=== PATIENT | male | born 1955 | race African-American/Black ===

== ENCOUNTER 2017-02-13 05:19 | Inpatient (IN) ==
[2017-02-13 05:53] LABS: Basophils % 0.4 % (0.0-0.8); Eosinophils % 0.5 % (0.00-10.9); Hematocrit 38.7 VOL% (42.0-52.0); Hemoglobin 12.5 GM/DL (14.0-18.0); Immature Granulocytes % 0.6 %; Immature Granulocytes Absolute 0.05 #; Lymphocytes # 1.5 10*3/uL (1.4-4.0); Lymphocytes % 18.7 % (21.2-54.2); Mean Corpuscular HGB Conc 32.3 GM/DL (32-36); Mean Corpuscular Hemoglobin 26 PG (27-34); Mean Corpuscular Volume 81.8 FL (87-102); Mean Platelet Volume 11.1 FL (9.6-12.0); Monocytes # 0.7 10*3/uL (0.11-0.8); Monocytes % 9.3 % (1.7-12.7); Neutrophils # 5.5 10*3/uL (1.4-7.4); Neutrophils % 70.5 % (38.7-73.9); Red Blood Count 4.73 MC/CUMM (3.8-5.5); Red Cell Distribution Width 20.4 % (9.3-17.3); White Blood Count 7.8 T/CUMM (4-12)
[2017-02-13 05:58] LABS: Platelet Count 80 T/CUMM (130-400)
[2017-02-13 06:13] LABS: Albumin 2.8 G/DL (3.4-5.0); Bilirubin,Total 1.8 MG/DL (0.2-1.0); Calcium 8.1 MG/DL (8.5-10.1); Osmolality,Calculated 281.5 MOS/KG (273-304); Potassium 4.2 MMOL/L (3.5-5.1)
[2017-02-13 06:29] LABS: Lactic Acid 1.3 MMOL/L (0.4-2.0)
[2017-02-13 06:31] LABS: Apearance,Urine CLEAR (Clear); Bacteria,Urine Occasional /HPF (Few); Bilirubin,Urine Negative (Negative); Blood, Urine Small mg/dL (Negative); Glucose,Urine (UA) Negative (Negative); Ketones,Urine Negative (Negative); Mucus,Urine Occasional /LPF (Occasional); Nitrite,Urine Negative (Negative); Protein,Urine 100 MG/DL; RBC,Urine 2 /HPF (0-4); Urine Color Yellow (Yellow); Urine Specific Gravity 1.016 (1.001-1.035); WBC,Urine <1 /HPF (0-6)
[2017-02-13] MEDS ORDERED: MORPHINE 2 MG/1 ML SYRINGE IV PRN (06:45)
[2017-02-13] MEDS ORDERED: MAGNESIUM SULF RIDER 2 GM in PREMIX 1 EACH IV PRN (06:45)
[2017-02-13] MEDS ORDERED: ZALEPLON 5 MG CAPSULE PO PRN (06:45)
[2017-02-13] MEDS ORDERED: ONDANSETRON 4 MG/2 ML VIAL IV PRN (06:45)
[2017-02-13] MEDS ORDERED: MAGNESIUM SULF RIDER 4 GM in PREMIX 1 EACH IV PRN (06:45)
[2017-02-13 06:47] LABS: Elliptocytes Few; Hypochromasia 1+; Platelet Estimate Decreased
[2017-02-13] MEDS ORDERED: POTASSIUM CHLORIDE 20 MEQ TABLET PO PRN (06:50)
--- NOTE | 2017-02-13 07:16 | Hospitalist History & Physical ---
<Kyrie Castañeda - Last Filed: 02/13/17 07:42> History of Present Illness History of present illness: Mr. Muñoz is a 61 year old male This is a chronically ill 61-year-old male that presented to the ED at [facility] this morning for evaluation of shortness of breath and "coughing up blood". Patient has a medical history significant for: Hypertension, dyslipidemia, multiple myeloma, chronic lower back pain, and osteosarcoma. The patient has a surgical history significant for stem cell transplantation at the [facility](2014). The patient reported the onset of symptoms 2 days prior to presentation. The patient reports that he has been at least "1/2 cup of blood at least 7 times since 2 AM this morning". He reports chills, fever, and lower back pain. He became alarmed and presented to the ED for further evaluation. In addition, the patient has a known diagnosis of osteosarcoma and is treated in the outpatient setting by Dr. Lauren and is currently undergoing chemotherapy. The patient is currently on aspirin therapy prophylactically. At the time of ED presentation, the patient was assessed. The patient was noted to be tachycardic with a heart rate of 126 with a low-grade temperature noted at 99.4. Labs were obtained; complete blood count reported white blood cell count 7.8, hemoglobin 12.5, hematocrit 30.7, and platelet count at 80. Complete metabolic profile reported sodium at 139, potassium 4.2, chloride 108, BUN 17, creatinine at 2.30, glucose 145, lactic acid 1.3, calcium 8.1, magnesium 1.9, total bilirubin 1.80, AST 49, ALT 48, and alkaline phosphatase is 76. BNP was noted at 879. Urinalysis was essentially unremarkable. Chest x -ray was obtained which was significant for congestive heart failure with mild decompensation. After brief discussion with both and Dr. Preciado, the patient will be admitted to the hospitalist services for continuation of care. Oncology has been contacted; Dr. Sparks is on-call. He has been notified of the patient's admission and has been requested to evaluate and assist during the clinical encounter. Medications have been reviewed; reconciliation will follow. CODE STATUS has been discussed; the patient is a Full CODE. Home Medications Medication Instructions Recorded Confirmed Type Aspirin Tab 325 mg PO DAILY 12/10/14 12/10/14 History Carvedilol [Coreg] 25 mg PO BID 12/10/14 12/10/14 History HYDROcodone/ACETAMIN 10-325 [[place] 1 tablet PO Q4-6H PRN 12/10/14 12/10/14 History 10-325] Lenalidomide [Revlimid] 25 mg PO DAILY 12/10/14 12/10/14 History Losartan/Hctz 50-12.5 [Hyzaar 1 tablet PO DAILY 12/10/14 12/10/14 History 50-12.5] Potassium Chloride Tab [K Dur] 10 meq PO BID 12/10/14 12/10/14 History predniSONE TAB 10 mg PO Q7DAY 12/10/14 12/10/14 History Acyclovir [Acyclovir Cap/Tab] 400 mg PO BID 12/11/14 12/11/14 History Alfuzosin [Uroxatral] 10 mg PO DAILY 12/11/14 12/11/14 History Bortezomib [Velcade] 3.5 mg IV DIRECTED 12/11/14 12/11/14 History Dexamethasone [Dexamethasone Tab] 4 mg PO DIRECTED 12/11/14 12/11/14 History Furosemide Tab [Lasix Tab] 40 mg PO DAILY 12/11/14 12/11/14 History Gabapentin Cap/Tab [Neurontin 300 mg PO TID 12/11/14 12/11/14 History Cap/Tab] Lenalidomide [Revlimid] 25 mg PO DAILY 12/11/14 12/11/14 History Magnesium Oxide 250 mg PO DAILY 12/11/14 12/11/14 History Zoledronic Acid [Zometa] 4 mg IV DIRECTED 12/11/14 12/11/14 History Allergies Allergy/AdvReac Type Severity Reaction Status Date / Time No Known Allergies Allergy Unverified 02/13/17 05:28 Exam - Constitutional Vitals: Period Temp Pulse Resp BP Sys/Connell Pulse Ox Last 24 Hr 99.4 F-99.4 F 121-126 22-30 113-135/75-86 96-99 Results - Labs CBC & BMP: 02/13/17 05:41 02/13/17 05:41 <Latanya Gavin - Last Filed: 02/13/17 08:03> Assessment and Plan - Time spent with patient Time spent with patient: Greater than 30 minutes (1) SOB (shortness of breath) Status: Acute Assessment and plan: Admit monitored bed to hospital services; start diuretics; potassium replacement ; follow up labs; repeat chest xray in a.m. Current Visit: Yes (2) Hemoptysis Status: Acute Current Visit: Yes (3) Multiple myeloma Status: Acute Assessment and plan: Patient of Dr Lauren; currently on p.o. chemotherapy treatment. Will consult Dr Sparks (molded goods controls operator for their services) for further evaluation. Current Visit: Yes History of Present Illness Chief complaint: shortness of breath; coughing up blood History of present illness: Mr. Muñoz is a very pleasant chronically ill 61 year old black male presented to [facility] ED this a.m. for evaluation of shortness of breath and "coughing up blood". Patient has a medical history significant for: hypertension; dyslipidemia; multiple myeloma, chronic lower back pain, and osteosarcoma. Patient has Sugical history: for stem cell transplantation at the [facility] (2014). Patient reported onset of symptoms 2 days prior to presentation. the patient reports that he has spit up at least "1/2 cup of blood at least 7 times since 2 AM this morning". He reports chills, fever, and lower back pain. He became alarmed and presented to the ED for further evaluation. In addition, the patient has a known diagnosis of osteosarcoma and is treated in the outpatient setting by Dr. Lauren and is currently undergoing P.O. chemotherapy. The patient is currently on aspirin therapy prophylactically. At the time of ED presentation, the patient was assessed. The patient was noted to be tachycardic with a heart rate of 126 with a low-grade temperature noted at 99.4. Labs were obtained; complete blood count reported white blood cell count 7.8, hemoglobin 12.5, hematocrit 30.7, and platelet count at 80. Complete metabolic profile reported sodium at 139, potassium 4.2, chloride 108, BUN 17, creatinine at 2.30, glucose 145, lactic acid 1.3, calcium 8.1, magnesium 1.9, total bilirubin 1.80, AST 49, ALT 48, and alkaline phosphatase is 76. BNP was noted at 879. Urinalysis was essentially unremarkable. Chest x -ray was obtained which was significant for congestive heart failure with mild decompensation. After brief discussion with both and Dr. Preciado, the patient will be admitted to the hospitalist services for continuation of care. Oncology has been contacted; Dr. Sparks is on-call. He has been notified of the patient's admission and has been requested to evaluate and assist during the clinical encounter. Medications have been reviewed; reconciliation will follow. CODE STATUS has been discussed; the patient is a Full CODE. Medical,Surgical,& Family Hx - Medical History Cardio: History of: Hypertension Neurology: No history of: Seizures Endocrine: History of: Dyslipidemia Gastrointestinal: No history of: GI Problems (screening) Musculoskeletal: History of: Musculoskeletal Problems (Bone CA) Other: History of: Cancer (bone cancer) - Surgical History Cardiac Surgeries: Patient Denies: Cardiac Catheterization Thoracic Surgeries: Patient denies;: Organ Transplant (on wait list) - Social History Smoking Status: Never smoker Frequency of Alcohol Use: None Type of Drug Use: None Review of systems: ROS completed and pertinent positives and negatives in HPI. Exam - Constitutional Vitals: Period Temp Pulse Resp BP Sys/Connell Pulse Ox Last 24 Hr 99.4 F-99.4 F 121-126 22-30 113-135/81-86 96-99 General appearance: no acute distress, over weight - Head Head exam: Present: normal inspection - Eye Eye exam: Present: EOMI Pupils: Present: KENNY - ENT ENT exam: Present: normal oropharynx - Neck Neck exam: Present: normal inspection - Respiratory Respiratory exam: Present: accessory muscle use, other (Bilateral rattles noted) - Cardiovascular Cardiovascular exam: Present: tachycardia - GI/Abdominal GI/Abdominal exam: Present: normal bowel sounds, soft. Absent: guarding, tenderness, rebound - Extremities Exam Extremities exam: Present: normal inspection, full ROM. Absent: edema - Neurological Exam Neurological exam: Present: alert, oriented X3, CN II-XII intact - Psychiatric Psychiatric exam: Present: normal affect, normal mood - Skin Skin exam: Present: normal color, warm, dry Results - Labs CBC & BMP: 02/13/17 05:41 02/13/17 05:41 Lab Results: I have reviewed the past 24 hour labs - Diagnostic Findings Procedure: Chest x-ray: report reviewed by me (CXR reviewed by Dr cerrato; CHF with mild decompensation )
--- NOTE | 2017-02-13 07:27 | EKG Report ---
Stationary ECG Study [facility] ER Test Date: 02/13/2017 5:37:30 AM Pat Name: CLAUDINE WILSON Department: Room: 434 Gender: M Channel Man: : 1955 Requested by: Silviano Baker Order Number: [id number] Reading MD: KAITLIN QUILES Intervals [place] Rate: 126 P: 55 VA: 135 QRS: -28 QRSD: 86 T: 40 QT: 335 QTc: 410 Interpretive Statements SINUS TACHYCARDIA BORDERLINE LEFT AXIS DEVIATION VOLTAGE CRITERIA FOR LVH NONSPECIFIC T-WAVE ABNORMALITY Electronically Signed On 02-14-17 12:50:20 CDT by KAITLIN QUILES [email or web address]
[2017-02-13] MEDS: FUROSEMIDE 40 MG/4 ML VIAL IV SCH ×3 (07:29→19:13)
[2017-02-13] MEDS ORDERED: FUROSEMIDE 40 MG/4 ML VIAL ONE (07:30)
--- NOTE | 2017-02-13 07:43 | Hospitalist History & Physical ---
History of Present Illness Chief complaint: Shortness of breath/coughing up blood History of present illness: Mr. Muñoz is a 61 year old male Home Medications Medication Instructions Recorded Confirmed Type Aspirin Tab 325 mg PO DAILY 12/10/14 12/10/14 History Carvedilol [Coreg] 25 mg PO BID 12/10/14 12/10/14 History HYDROcodone/ACETAMIN 10-325 [[place] 1 tablet PO Q4-6H PRN 12/10/14 12/10/14 History 10-325] Lenalidomide [Revlimid] 25 mg PO DAILY 12/10/14 12/10/14 History Losartan/Hctz 50-12.5 [Hyzaar 1 tablet PO DAILY 12/10/14 12/10/14 History 50-12.5] Potassium Chloride Tab [K Dur] 10 meq PO BID 12/10/14 12/10/14 History predniSONE TAB 10 mg PO Q7DAY 12/10/14 12/10/14 History Acyclovir [Acyclovir Cap/Tab] 400 mg PO BID 12/11/14 12/11/14 History Alfuzosin [Uroxatral] 10 mg PO DAILY 12/11/14 12/11/14 History Bortezomib [Velcade] 3.5 mg IV DIRECTED 12/11/14 12/11/14 History Dexamethasone [Dexamethasone Tab] 4 mg PO DIRECTED 12/11/14 12/11/14 History Furosemide Tab [Lasix Tab] 40 mg PO DAILY 12/11/14 12/11/14 History Gabapentin Cap/Tab [Neurontin 300 mg PO TID 12/11/14 12/11/14 History Cap/Tab] Lenalidomide [Revlimid] 25 mg PO DAILY 12/11/14 12/11/14 History Magnesium Oxide 250 mg PO DAILY 12/11/14 12/11/14 History Zoledronic Acid [Zometa] 4 mg IV DIRECTED 12/11/14 12/11/14 History Allergies Allergy/AdvReac Type Severity Reaction Status Date / Time No Known Allergies Allergy Unverified 02/13/17 05:28 Medical,Surgical,& Family Hx - Medical History Cardio: History of: Hypertension Neurology: No history of: Seizures Endocrine: History of: Dyslipidemia Gastrointestinal: No history of: GI Problems (screening) Musculoskeletal: History of: Musculoskeletal Problems (Bone CA) Other: History of: Cancer (bone cancer) - Surgical History Cardiac Surgeries: Patient Denies: Cardiac Catheterization Thoracic Surgeries: Patient denies;: Organ Transplant (on wait list) - Social History Smoking Status: Never smoker Frequency of Alcohol Use: None Type of Drug Use: None Exam - Constitutional Vitals: Period Temp Pulse Resp BP Sys/Connell Pulse Ox Last 24 Hr 99.4 F-99.4 F 121-126 22-30 113-135/81-86 96-99 Results - Labs CBC & BMP: 02/13/17 05:41 02/13/17 05:41
--- NOTE | 2017-02-13 08:47 | Oncology Consult Note ---
Assessment and Plan (1) Multiple myeloma Status: Acute Assessment and plan: There is nothing to add from a hematology standpoint. He appears to be in apparent remission from his myeloma to the best I can tell. His shortness of breath is being managed by the hospitalist service. Please call me if there are any questions that I may be of assistance with. He appears to have chronic kidney disease with a current creatinine of 2.3. I am unsure what his baseline usually is. Current Visit: Yes (2) SOB (shortness of breath) Status: Acute Current Visit: Yes History of Present Illness History of present illness: Mr. Muñoz is a 61 year old male with a history of multiple myeloma who is status post stem cell transplant at [facility] in 2014 and is currently on maintenance Revlimid. He is followed by Dr. Lauren here in [place] for his local oncology care. He presented to the emergency room this morning with a two-week history of orthopnea and shortness of breath. Evaluation in the emergency room was consistent with CHF exacerbation and he was admitted for further evaluation and treatment. Hematology has been consulted to help monitor his myeloma. Home Medications Medication Instructions Recorded Confirmed Type Aspirin Tab 325 mg PO DAILY 12/10/14 12/10/14 History Carvedilol [Coreg] 25 mg PO BID 12/10/14 12/10/14 History HYDROcodone/ACETAMIN 10-325 [[place] 1 tablet PO Q4-6H PRN 12/10/14 12/10/14 History 10-325] Lenalidomide [Revlimid] 25 mg PO DAILY 12/10/14 12/10/14 History Losartan/Hctz 50-12.5 [Hyzaar 1 tablet PO DAILY 12/10/14 12/10/14 History 50-12.5] Potassium Chloride Tab [K Dur] 10 meq PO BID 12/10/14 12/10/14 History predniSONE TAB 10 mg PO Q7DAY 12/10/14 12/10/14 History Acyclovir [Acyclovir Cap/Tab] 400 mg PO BID 12/11/14 12/11/14 History Alfuzosin [Uroxatral] 10 mg PO DAILY 12/11/14 12/11/14 History Bortezomib [Velcade] 3.5 mg IV DIRECTED 12/11/14 12/11/14 History Dexamethasone [Dexamethasone Tab] 4 mg PO DIRECTED 12/11/14 12/11/14 History Furosemide Tab [Lasix Tab] 40 mg PO DAILY 12/11/14 12/11/14 History Gabapentin Cap/Tab [Neurontin 300 mg PO TID 12/11/14 12/11/14 History Cap/Tab] Lenalidomide [Revlimid] 25 mg PO DAILY 12/11/14 12/11/14 History Magnesium Oxide 250 mg PO DAILY 12/11/14 12/11/14 History Zoledronic Acid [Zometa] 4 mg IV DIRECTED 12/11/14 12/11/14 History Allergies Allergy/AdvReac Type Severity Reaction Status Date / Time No Known Allergies Allergy Unverified 02/13/17 05:28 Medical,Surgical,& Family Hx - Medical History Cardio: History of: Hypertension Neurology: No history of: Seizures Endocrine: History of: Dyslipidemia Gastrointestinal: No history of: GI Problems (screening) Musculoskeletal: History of: Musculoskeletal Problems (Bone CA) Other: History of: Cancer (bone cancer) - Surgical History Cardiac Surgeries: Patient Denies: Cardiac Catheterization Thoracic Surgeries: Patient denies;: Organ Transplant (on wait list) - Family History Family History: Reports;: Family Diabetes (mother sister) - Social History Smoking Status: Never smoker Frequency of Alcohol Use: None Type of Drug Use: None 12 point system: reviewed and no additional remarkable complaints except as stated - Constitutional Constitutional: Present: fatigue - Cardiovascular Cardiovascular ROS IM: Present: edema, orthopnea. Absent: chest pain - Respiratory Respiratory: Present: cough, dyspnea Exam - Constitutional Vitals: Period Temp Pulse Resp BP Sys/Connell Pulse Ox Last 24 Hr 98.8 F-99.4 F 112-126 22-30 113-135/60-86 95-99 General appearance: normal weight, no acute distress - Head Head Exam: Present: normocephalic, atraumatic - Eye Eye Exam: Present: EOMI Pupils: Present: PERRL - ENT ENT exam: Present: normal exam, normal oropharynx - Neck Neck exam: Present: normal inspection - Respiratory Respiratory exam: Absent: accessory muscle use - Cardiovascular Cardiovascular exam: Absent: JVD - Neurological Exam Neurological exam: Present: alert, oriented X3 - Psychiatric Psychiatric exam: Present: normal affect, normal mood Results - Labs CBC & BMP: 02/13/17 05:41 02/13/17 05:41 Lab Results: I have reviewed the past 24 hour labs
[2017-02-13] MEDS: CARVEDILOL 25 MG TABLET PO SCH ×2 (10:14→20:49)
[2017-02-13] MEDS: MAGNESIUM OXIDE 400 MG TABLET PO SCH (10:14)
[2017-02-13] MEDS: ENOXAPARIN 30 MG/0.3 ML SYRINGE SUBCUT SCH (10:15)
[2017-02-13] MEDS: ASPIRIN EC 325 MG TABLET PO SCH (10:15)
[2017-02-13] MEDS: PANTOPRAZOLE 40 MG TABLET PO SCH (10:15)
--- NOTE | 2017-02-13 10:34 | XRay Report ---
History: Shortness of breath. History of multiple myeloma Date: 02/13/2017 Study: Chest x-ray AP portable Comparison exam: No previous similar available There is cardiomegaly and mild pulmonary vascular engorgement. There is some hazy edema in the lower lungs, right greater than left. There is mild bilateral pleural effusion. There is asymmetric prominence of the right hilar area. Consider underlying right hilar lymphadenopathy. There are some permeative lytic-type changes of the bony framework as noted on the bone survey from June 28, 2014 in this patient with known multiple myeloma. Impression: Cardiomegaly and evidence of CHF with some bibasilar pulmonary edema Potential right hilar lymphadenopathy Permeative lytic changes compatible with known multiple myeloma PROCEDURE INTERPRETED AT [facility] DEPARTMENT OF RADIOLOGY Final Report Signed by: Dr. Yasmeen Lezama
[2017-02-13] MEDS: POTASSIUM CHLORIDE 10 MEQ TABLET PO SCH ×2 (10:41→20:49)
[2017-02-13] MEDS ORDERED: NITROGLYCERIN 2% OINT 1 INCH/GM PACK TOP SCH (12:00)
--- NOTE | 2017-02-13 12:46 | Event Note ---
Called to see patient for low blood pressure. Mr. Muñoz states that he has been feeling dizzy got up to go to the bathroom became nauseated and sweaty and passed out while on the commode. He did not fall or injure himself. This occurred approximately 30-60 minutes ago. Nurse called and stated that his blood pressure was in the 70s. Upon my arrival he is awake alert and oriented with his at his side. He denies any chest pain. Shortness of breath may be slightly improved from earlier. Recheck of blood pressure reveals systolic blood pressure of 81. He did receive Coreg this morning as well as IV Lasix but has not received his Nitropaste since that time. We will proceed with transferring him to the CCU while holding any antihypertensive therapy. Cardiology will be consulted to assist with his care.
[2017-02-13 14:19] LABS: ABG Base Excess -8.4 MMOL/L (-2.5-2.5); ABG HCO3 17.8 MMOL/L (20-26); ABG Oxygen Saturation 97.1 % (95-100); ABG PH 7.458 (7.35-7.45); ABG PO2 90.7 MM HG (80-95); ABG TCO2 11.7 MMOL/L (23-27)
--- NOTE | 2017-02-13 14:27 | ECHO Report ---
Rm Muñoz Exam Date: 02/13/2017 12:21 Referring Physician: Technologist: Lakshmi Eid RDCS Age: 61 Ht (in): 77 Wt (lb): 280 Gender: M Exam Location: [facility] Echo Indications: Multiple myeloma, Shortness of breath, Essential (primary) hypertension BP: 78 / 50 HR: 99 Rhythm: Sinus Technical Quality: Good IMPRESSIONS EF 15%,severe global hypokinesis. Grade III/IV diastolic dysfunction (restrictive filling pattern), severely elevated filling pressures. Mildly increased right ventricular size. Moderately increased right atrial size. Moderately increased left atrial size. Morphologically normal mitral valve. Mild mitral valve regurgitation. Trace aortic valve regurgitation. Mild tricuspid valve regurgitation. PAP40 mmHG. Trace pulmonary valve regurgitation. No pericardial effusion. Normal aorta. MEASUREMENTS (Male / Female) Normal Values 2D ECHO LV Diastolic Diameter PLAX 6.7 cm 4.2 - 5.9 / 3.9 - 5.3 cm LV Systolic Diameter PLAX 6.6 cm LV Fractional Shortening PLAX 2.2 % IVS Diastolic Thickness 1.1 cm 0.6 - 1.0 / 0.6 - 0.9 cm LVPW Diastolic Thickness 1.1 cm 0.6 - 1.0 / 0.6 - 0.9 cm RV Internal Dim ED PLAX 5.0 cm Aortic Root Diameter 3.7 cm LA Systolic Diameter LX 4.9 cm 3.0 - 4.0 / 2.7 - 3.8 cm DOPPLER TR Peak Velocity 280.0 cm/s TR Peak Gradient 31.4 mmHg FINDINGS Left Ventricle EF 15%,severe global hypokinesis. Grade III/IV diastolic dysfunction (restrictive filling pattern), severely elevated filling pressures. Right Ventricle Mildly increased right ventricular size. Right Atrium Moderately increased right atrial size. Left Atrium Moderately increased left atrial size. Mitral Valve Morphologically normal mitral valve. Mild mitral valve regurgitation. Aortic Valve Aortic valve sclerosis. Trace aortic valve regurgitation. Tricuspid Valve Morphologically normal tricuspid valve. Mild tricuspid valve regurgitation. PAP40 mmHG. Pulmonic Valve Pulmonic valve not well visualized. Trace pulmonary valve regurgitation. Pericardium No pericardial effusion. Aorta Normal aorta. Christopher Tip (Electronically Signed) Final Date: 13 February 2017 14:26
[2017-02-13] MEDS: DOBUTamine 500 MG/250 ML PREMIX IV SCH (14:50)
--- NOTE | 2017-02-13 15:00 | Cardiology Consult Note ---
Assessment and Plan (1) Cardiomyopathy Status: Acute Current Visit: Yes Qualifiers: Cardiomyopathy type: unspecified Qualified Code(s): I42.9 - Cardiomyopathy , unspecified (2) Congestive heart failure Status: Acute Current Visit: Yes Qualifiers: Congestive heart failure type: systolic (3) Hypoxemia Status: Acute Current Visit: Yes (4) Cardiopulmonary arrest with successful resuscitation Status: Acute Current Visit: Yes (5) Renal insufficiency Status: Chronic Current Visit: Yes (6) Thrombocytopenia Status: Acute Current Visit: Yes (7) Hemoptysis Status: Acute Current Visit: Yes (8) Multiple myeloma Status: Chronic Current Visit: Yes Qualifiers: Multiple myeloma remission status: in remission Qualified Code(s): C90.01 - Multiple myeloma in remission (9) SOB (shortness of breath) Status: Acute Current Visit: Yes History of Present Illness - Data of Consult Patient: new to practice Consult date: 02/13/17 Requesting Physician: Henry Preciado - Consult Narrative Reason for consult: CHF 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 Lauren Mr. Muñoz is a 61 year old male without a prior cardiac history, with risk factors significant for hypertension. He has a history of multiple myeloma which is followed by Dr. Lauren. He was admitted to the hospital with progressive dyspnea, orthopnea, and some mild hemoptysis. His is present and provides supplemental history. Apparently the patient was having some lower extremity edema and shortness of breath a couple of months ago and was treated transiently with Lasix as an outpatient. Over the last 2 weeks he has had steady progressive dyspnea, orthopnea and lower extremity edema. He sometimes feels chest pressure when he tries to lay back and cannot breathe when his symptoms have been severe. He also had some ongoing epigastric pain that is constant, worsened with eating, but no other chest pain per se. On admission his chest x-ray demonstrated edema, he was also found to have renal insufficiency. Diuresis was initiated, and the patient became hypotensive with a blood pressure in the 70s. He has subsequently been transferred to the ICU. Echocardiogram was performed which demonstrated an ejection fraction of 15%. He has had some arthralgias, some occasional bone pain. He denies any fevers or chills. He does not have a productive cough. He is thrombocytopenic, does not believe that he is usually thrombocytopenic. He does have some chronic renal insufficiency. He has had some diarrhea during this admission without clear melena. Impression and plan: 1. Congestive heart failure. This appears to be at least a subacute presentation, there is no prior documentation of cardiomyopathy. This is secondary to systolic dysfunction and renal insufficiency. Currently his blood pressure will not allow any FRANCINE inhibitor or further afterload reduction. He has not tolerated aggressive diuresis. Dobutamine is being initiated and I am in agreement with this. If this is ineffective we can always consider milrinone as well. We will be monitoring for worsening hypotension with dobutamine. 2. Hemoptysis-significance of this is unclear. Massive hemoptysis is certainly contributes to the hypotension and hypoxemia. We will monitor CBCs. 3. Multiple myeloma -Reportedly stable 4. Chronic renal insufficiency 5. Thrombocytopenia-chronicity unknown. Addendum: Prior to completing this note, the patient experienced a "CODE BLUE". Per nursing report, prior to dobutamine initiation, the patient became progressively bradycardic and unresponsive and eventually developed asystole, hypoxemia. ACLS protocol was initiated. It was a difficult intubation and blood was noted in the airways. The patient received 2 rounds of epinephrine as well and we initiated norepinephrine drip. I have discussed these developments with the patient's family and elaborated on the grave prognosis these events can portend. I have discussed placement of a line and triple- lumen venous catheter for supportive measures and the family is in agreement with this approach. They would like to continue with full aggressive measures at this time. They believe this is congruent with the patient's wishes. We have resent blood work, chest x-ray and we will reevaluate his clinical scenario depending on the results of these tests. CC: Bal Cox - Home Medications and Allergies Home Medications: Home Medications Medication Instructions Recorded Confirmed Type Aspirin Tab 325 mg PO DAILY 12/10/14 02/13/17 History HYDROcodone/ACETAMIN 10-325 [[place] 1 tablet PO Q4-6H PRN 12/10/14 02/13/17 History 10-325] Furosemide Tab [Lasix Tab] 40 mg PO BID 12/11/14 02/13/17 History Lenalidomide [Revlimid] 5 mg PO QOTHER DAY 12/11/14 02/13/17 History Magnesium Oxide 250 mg PO DAILY 12/11/14 02/13/17 History Allopurinol 300 mg PO DAILY 02/13/17 02/13/17 History Calcium Carbonate [Calcium] 600 mg PO DAILY 02/13/17 02/13/17 History Cyclobenzaprine [Flexeril] 10 mg PO DAILY PRN 02/13/17 02/13/17 History Gabapentin 600 mg PO BID 02/13/17 02/13/17 History Lenalidomide [Revlimid] 5 mg PO QOTHER DAY 02/13/17 02/13/17 History Levothyroxine Tab [Synthroid Tab] 100 mcg PO DAILY 02/13/17 02/13/17 History Losartan Potassium 50 mg PO DAILY 02/13/17 02/13/17 History Magnesium 250 mg PO DAILY 02/13/17 02/13/17 History Tamsulosin [Flomax] 0.4 mg PO DAILY 02/13/17 02/13/17 History Allergies/Adverse Reactions: Allergies Allergy/AdvReac Type Severity Reaction Status Date / Time No Known Allergies Allergy Unverified 02/13/17 05:28 12 point system: reviewed and no additional remarkable complaints except as stated Medical,Surgical,& Family Hx - Medical History Cardio: History of: Hypertension Neurology: No history of: Seizures Endocrine: History of: Dyslipidemia Gastrointestinal: No history of: GI Problems (screening) Musculoskeletal: History of: Musculoskeletal Problems (Bone CA) Other: History of: Cancer (bone cancer) - Surgical History Cardiac Surgeries: Patient Denies: Cardiac Catheterization Thoracic Surgeries: Patient denies;: Organ Transplant (on wait list) - Family History Family History: Reports;: Family Diabetes (mother sister) - Social History Smoking Status: Never smoker Frequency of Alcohol Use: None Type of Drug Use: None Marital Status: Lives With:: Spouse Functional capacity: independent ambulation Physical Examination Vital Signs Temp Pulse Resp BP Pulse Ox 99.4 F 126 H 30 H 135/86 96 02/13/17 05:25 02/13/17 05:25 02/13/17 05:25 02/13/17 05:25 02/13/17 05:25 Exam: General appearance: normal weight, mild tachypnea, ill-appearing - Head Head exam: Present: normal inspection, normocephalic, atraumatic. Absent: hematoma, laceration - Eye Eye exam: Present: EOMI. Absent: conjunctival injection, nystagmus, periorbital swelling, scleral icterus, laceration to eyelids Pupils: Absent: constricted, dilated, fixed, irregular, unequal - ENT ENT exam: Present: normal exam, normal external ear exam - Neck Neck exam: Present: It is difficult to evaluate for JVD. Absent: lymphadenopathy, meningismus, tenderness, thyromegaly - Respiratory Respiratory exam: Present: Bilateral crackles. Absent: chest wall tenderness - Cardiovascular Cardiovascular exam: Present: regular rate and rhythm. Absent: carotid bruit, gallop, rubs - GI/Abdominal GI/Abdominal exam: Present: Mild midepigastric tenderness, mildly decreased bowel sounds, soft. Absent: firm, guarding, hernia, mass, tenderness, rebound. - Extremities Exam Extremities exam: Present: 1+ bilateral lower extremity edema, normal capillary refill. Absent: calf tenderness - Back Exam Back exam: Unable to examine at this time due to the patient's respiratory status. - Neurological Exam Neurological exam: Present: alert, oriented X3, grossly intact without resting or intention tremor - Psychiatric Psychiatric exam: Present: normal affect, mildly anxious - Skin Skin exam: Present: normal color, cool and diaphoretic, intact. Absent: cyanosis, rash, urticaria Result/EKG - Labs CBC & BMP: 02/13/17 05:41 02/13/17 05:41 Lab Results: I have reviewed the past 24 hour labs Labs: Laboratory Results - last 24 hr 02/13/17 02/13/17 02/13/17 05:41 05:41 05:41 WBC 7.8 RBC 4.73 Hgb 12.5 L Hct 38.7 L MCV 81.8 L MCH 26 L MCHC 32.3 RDW 20.4 H Plt Count 80 L MPV 11.1 Neut % (Auto) 70.5 Lymph % (Auto) 18.7 L [place] % (Auto) 9.3 Eos % (Auto) 0.5 Baso % (Auto) 0.4 Neut # (Auto) 5.5 Lymph # (Auto) 1.5 [place] # (Auto) 0.7 Eos # (Auto) 0.0 Baso # (Auto) 0.0 Immature Gran % 0.6 Nucleated RBC % 0.0 Immature Gran # 0.05 Nucleated RBCs # 0.00 Platelet Estimate Decreased Hypochromasia 1+ Elliptocytes Few Morphology Comment ABG pH ABG pCO2 ABG pO2 ABG HCO3 ABG Total CO2 ABG O2 Saturation ABG Base Excess Sodium 139 Potassium 4.2 Chloride 108 H Carbon Dioxide 22 Anion Gap 13.2 BUN 17 Creatinine 2.30 H GFR Calculation 51 BUN/Creatinine Ratio 7.00 Glucose 145 H Calculated Osmolality 281.5 Lactic Acid 1.3 Calcium 8.1 L Magnesium Total Bilirubin 1.80 H AST 49 H ALT 48 Alkaline Phosphatase 76 Troponin I B-Natriuretic Peptide Total Protein 7.0 Albumin 2.8 L Globulin 4.2 H Albumin/Globulin Ratio 0.6 L Urine Color Yellow Urine Appearance Clear Urine pH 6.0 Ur Specific [place] 1.016 Urine Protein 100 Urine Glucose (UA) Negative Urine Ketones Negative Urine Blood Small Urine Nitrate Negative Urine Bilirubin Negative Urine Urobilinogen 2.0 H Urine Leukocytes Negative Urine RBC 2 Urine WBC <1 Urine Bacteria Occasional Urine Mucus Occasional Ur Culture Indicated? Not indicated Blood Type Antibody Screen 02/13/17 02/13/17 02/13/17 05:41 05:41 05:41 WBC RBC Hgb Hct MCV MCH MCHC RDW Plt Count MPV Neut % (Auto) Lymph % (Auto) [place] % (Auto) Eos % (Auto) Baso % (Auto) Neut # (Auto) Lymph # (Auto) [place] # (Auto) Eos # (Auto) Baso # (Auto) Immature Gran % Nucleated RBC % Immature Gran # Nucleated RBCs # Platelet Estimate Hypochromasia Elliptocytes Morphology Comment ABG pH ABG pCO2 ABG pO2 ABG HCO3 ABG Total CO2 ABG O2 Saturation ABG Base Excess Sodium Potassium Chloride Carbon Dioxide Anion Gap BUN Creatinine GFR Calculation BUN/Creatinine Ratio Glucose Calculated Osmolality Lactic Acid Calcium Magnesium Total Bilirubin AST ALT Alkaline Phosphatase Troponin I 0.093 H B-Natriuretic Peptide 879 H Total Protein Albumin Globulin Albumin/Globulin Ratio Urine Color Urine Appearance Urine pH Ur Specific [place] Urine Protein Urine Glucose (UA) Urine Ketones Urine Blood Urine Nitrate Urine Bilirubin Urine Urobilinogen Urine Leukocytes Urine RBC Urine WBC Urine Bacteria Urine Mucus Ur Culture Indicated? Blood Type B NEGATIVE Antibody Screen Negative 02/13/17 02/13/17 02/13/17 09:45 13:01 14:15 WBC RBC Hgb Hct MCV MCH MCHC RDW Plt Count MPV Neut % (Auto) Lymph % (Auto) [place] % (Auto) Eos % (Auto) Baso % (Auto) Neut # (Auto) Lymph # (Auto) [place] # (Auto) Eos # (Auto) Baso # (Auto) Immature Gran % Nucleated RBC % Immature Gran # Nucleated RBCs # Platelet Estimate Hypochromasia Elliptocytes Morphology Comment ABG pH 7.458 H ABG pCO2 19.0 L* ABG pO2 90.7 ABG HCO3 17.8 L ABG Total CO2 11.7 L ABG O2 Saturation 97.1 ABG Base Excess -8.4 L Sodium Potassium Chloride Carbon Dioxide Anion Gap BUN Creatinine GFR Calculation BUN/Creatinine Ratio Glucose Calculated Osmolality Lactic Acid Calcium Magnesium Total Bilirubin AST ALT Alkaline Phosphatase Troponin I 0.096 H 0.122 H D B-Natriuretic Peptide Total Protein Albumin Globulin Albumin/Globulin Ratio Urine Color Urine Appearance Urine pH Ur Specific [place] Urine Protein Urine Glucose (UA) Urine Ketones Urine Blood Urine Nitrate Urine Bilirubin Urine Urobilinogen Urine Leukocytes Urine RBC Urine WBC Urine Bacteria Urine Mucus Ur Culture Indicated? Blood Type Antibody Screen 02/13/17 Unknown WBC RBC Hgb Hct MCV MCH MCHC RDW Plt Count MPV Neut % (Auto) Lymph % (Auto) [place] % (Auto) Eos % (Auto) Baso % (Auto) Neut # (Auto) Lymph # (Auto) [place] # (Auto) Eos # (Auto) Baso # (Auto) Immature Gran % Nucleated RBC % Immature Gran # Nucleated RBCs # Platelet Estimate Hypochromasia Elliptocytes Morphology Comment ABG pH ABG pCO2 ABG pO2 ABG HCO3 ABG Total CO2 ABG O2 Saturation ABG Base Excess Sodium Potassium Chloride Carbon Dioxide Anion Gap BUN Creatinine GFR Calculation BUN/Creatinine Ratio Glucose Calculated Osmolality Lactic Acid Calcium Magnesium 1.9 Total Bilirubin AST ALT Alkaline Phosphatase Troponin I B-Natriuretic Peptide Total Protein Albumin Globulin Albumin/Globulin Ratio Urine Color Urine Appearance Urine pH Ur Specific [place] Urine Protein Urine Glucose (UA) Urine Ketones Urine Blood Urine Nitrate Urine Bilirubin Urine Urobilinogen Urine Leukocytes Urine RBC Urine WBC Urine Bacteria Urine Mucus Ur Culture Indicated? Blood Type Antibody Screen - Diagnostic Findings Procedure: Chest x-ray: report reviewed by me - EKG EKG results: interpreted by me, sinus rhythm (With LVH), no acute changes
[2017-02-13] MEDS ORDERED: EPINEPHrine 1 MG/10 ML SYRINGE IV ONE ×3 (15:02→15:13)
[2017-02-13] MEDS ORDERED: SODIUM BICARBONATE 50 MEQ/50 ML SYRINGE IV ONE ×2 (15:10→15:14)
[2017-02-13] MEDS ORDERED: ATROPINE 1 MG/10 ML SYRINGE IV ONE ×2 (15:11→15:14)
--- NOTE | 2017-02-13 15:28 | Event Note ---
Patient was noted to have increasing dyspnea followed by progressive bradycardia and loss of consciousness at which time a code was called. ACLS protocol was initiated and he was intubated by Dr. Baker with 8-00 ETT utilizing the glide scope. After receiving several rounds of epinephrine, bicarb and atropine during which time he was in asystole, he did develop a rhythm consistent with sinus tachycardia and blood pressure was palpable. Bandar- Synephrine was initiated and he is now stabilized on the vent. Dr. Seo and I discussed the events with the family, including plans for central line and arterial line, continued vent support and medical therapy. At this time they understand that he is critically ill and are in agreement with current plans.
[2017-02-13] MEDS: PHENYLEPHRINE DRIP 40 MG/250 ML PREMIX IV SCH ×3 (15:30→21:26)
--- NOTE | 2017-02-13 15:47 | XRay Report ---
History: Endotracheal tube placement Date: 02/13/2017 at 3:16 PM Study: Chest x-ray AP portable Comparison exam: 02/13/2017 at 5:49 AM Endotracheal tube is well-positioned. There is continued cardiomegaly. The mediastinal contours are unchanged. The pulmonary vasculature is slightly prominent. There is continued patchy and hazy pulmonary edema in the mid to lower lung zones, though this appears improved. Osseous structures are unchanged. Impression: Satisfactory positioning of the endotracheal tube. Cardiomegaly and continued congestive heart failure, though there is improved pulmonary edema PROCEDURE INTERPRETED AT [facility] DEPARTMENT OF RADIOLOGY Final Report Signed by: Dr. Yasmeen Lezama
[2017-02-13 15:58] LABS: Calcium 7.7 MG/DL (8.5-10.1); Magnesium 2.2 MG/DL (1.8-2.4); Osmolality,Calculated 284.3 MOS/KG (273-304)
[2017-02-13] MEDS ORDERED: PROPOFOL 1,000 MG/100 ML BOTTLE IV SCH (16:00)
[2017-02-13 16:03] LABS: Troponin I Only 0.151 NG/ML (0.00-0.045)
--- NOTE | 2017-02-13 16:24 | Operative Note ---
Date of procedure: 02/13/17 Pre-op diagnosis: Hypotension, cardiac pulmonary arrest Post-op diagnosis: same Procedure: Procedure performed: 1. Placement of right femoral arterial line 2. Placement of right femoral venous quadralumen catheter Procedure: Informed consent was obtained from the patient's family as the patient was unresponsive. The right groin was prepped and draped in sterile fashion. The right femoral vein was accessed via modified Seldinger technique and the venous finder needle was used to access the femoral vein. A guidewire was advanced through the needle and the needle was removed. The kit dilator was used to dilate the vein over the wire, and the quadrant lumen catheter was subsequently placed without difficulty into the femoral vein. All 4 ports were aspirated and flushed easily. Thereafter, the right femoral artery was accessed via modified Seldinger technique using the enclosed arterial finder needle, and a guidewire was advanced into the artery. The femoral arterial catheter was advanced over the wire without difficulty, and red pulsatile return was observed prior to attaching the catheter to the arterial line. Impression: Successful placement of right femoral venous and arterial catheters as described above. Complications: None. Specimens removed: None Devices implanted: Catheters as described above Estimated blood loss: Less than 10 cc. Anesthesia: none Surgeon / Physician: Jessica Seo Estimated blood loss: minimal Specimens: none sent Condition: critical Disposition: ICU Results - Labs CBC & BMP: 02/13/17 05:41 02/13/17 15:16 Discharge Plan - Discharge Medications No Action Aspirin Tab 325 mg PO DAILY HYDROcodone/ACETAMIN 10-325 [[place] 10-325] 1 tablet PO Q4-6H PRN PRN Reason: Pain Furosemide Tab [Lasix Tab] 40 mg PO BID Lenalidomide [Revlimid] 5 mg PO QOTHER DAY Magnesium Oxide 250 mg PO DAILY Levothyroxine Tab [Synthroid Tab] 100 mcg PO DAILY Magnesium 250 mg PO DAILY Cyclobenzaprine [Flexeril] 10 mg PO DAILY PRN PRN Reason: Muscle Spasm Tamsulosin [Flomax] 0.4 mg PO DAILY Gabapentin 600 mg PO BID Lenalidomide [Revlimid] 5 mg PO QOTHER DAY Losartan Potassium 50 mg PO DAILY Allopurinol 300 mg PO DAILY Calcium Carbonate [Calcium] 600 mg PO DAILY - Follow Up or Referral - Forms/Instructions
[2017-02-13] MEDS ORDERED: PROPOFOL 1,000 MG/100 ML BOTTLE IV ONE (16:33)
[2017-02-13 16:40] LABS: ABG Base Excess -6.7 MMOL/L (-2.5-2.5); ABG HCO3 15.6 MMOL/L (20-26); ABG PCO2 24.2 MM HG (35-48); ABG PH 7.426 (7.35-7.45); ABG PO2 480.2 MM HG (80-95); ABG TCO2 16.3 MMOL/L (23-27)
--- NOTE | 2017-02-13 16:41 | XRay Report ---
History: Abdominal pain Date: 02/13/2017 Study: KUB Comparison exam: No previous similar There is some moderate gaseous distention of the stomach. There is no fahad bowel obstruction or gross mass lesion. A right femoral central line is positioned with its tip over the expected location of the right common iliac vein more superiorly. There is mild lumbar spondylosis. Impression: No definite acute process. PROCEDURE INTERPRETED AT [facility] DEPARTMENT OF RADIOLOGY Final Report Signed by: Dr. Yasmeen Lezama
[2017-02-13] MEDS ORDERED: NOREPINEPHRINE 8 MG in SODIUM CHLORIDE 0.9% 242 ML IV SCH (17:00)
[2017-02-13] MEDS: NOREPINEPHRINE 16 MG in SODIUM CHLORIDE 0.9% 234 ML IV SCH (17:10)
[2017-02-13 17:12] LABS: Basophils % 0.3 % (0.0-0.8); Hematocrit 41.7 VOL% (42.0-52.0); Hemoglobin 13.2 GM/DL (14.0-18.0); Immature Granulocytes % 1.5 %; Immature Granulocytes Absolute 0.19 #; Lymphocytes # 2.6 10*3/uL (1.4-4.0); Lymphocytes % 20.7 % (21.2-54.2); Mean Corpuscular HGB Conc 31.7 GM/DL (32-36); Mean Corpuscular Hemoglobin 26 PG (27-34); Mean Corpuscular Volume 83.4 FL (87-102); Monocytes % 8.5 % (1.7-12.7); NRBC # 0.05 10*3/uL; Neutrophils # 8.5 10*3/uL (1.4-7.4); Red Cell Distribution Width 20.8 % (9.3-17.3); White Blood Count 12.3 T/CUMM (4-12)
[2017-02-13 17:16] LABS: Platelet Count 70 T/CUMM (130-400)
[2017-02-13] MEDS ORDERED: HEPARIN/NACL 0.9% 2 UNITS/ML 500 ML IV ONE (18:25)
[2017-02-13] MEDS: DEXTROSE 50% 25 GM/50 ML VIAL IV PRN (18:30)
[2017-02-13] MEDS: LEVOFLOXACIN INJ 500 MG in PREMIX 1 EACH IV SCH (18:40)
[2017-02-13 19:12] LABS: ABG Base Excess -10.7 MMOL/L (-2.5-2.5); ABG HCO3 12.6 MMOL/L (20-26); ABG PCO2 22.9 MM HG (35-48); ABG PH 7.357 (7.35-7.45); ABG PO2 330.7 MM HG (80-95); ABG TCO2 13.3 MMOL/L (23-27)
[2017-02-13 19:13] LABS: ABG Oxygen Saturation 99.7 % (95-100)
[2017-02-13 20:18] LABS: ABG Base Excess -7.8 MMOL/L (-2.5-2.5); ABG HCO3 18.2 MMOL/L (20-26); ABG PCO2 25.2 MM HG (35-48); ABG PH 7.397 (7.35-7.45); ABG TCO2 13.6 MMOL/L (23-27)
[2017-02-13] MEDS: metroNIDAZOLE INJ 500 MG in PREMIX 1 EACH IV SCH (20:49)
[2017-02-13] MEDS ORDERED: PHENYLEPHRINE DRIP 40 MG/250 ML PREMIX IV ONE (21:48)
[2017-02-13] MEDS: GABAPENTIN 600 MG TABLET PO SCH (22:39)
[2017-02-14] MEDS ORDERED: PHENYLEPHRINE DRIP 40 MG/250 ML PREMIX IV ONE (01:11)
[2017-02-14] MEDS: PHENYLEPHRINE DRIP 40 MG/250 ML PREMIX IV SCH ×4 (01:37→09:10)
[2017-02-14] MEDS: DOPamine 800 MG/250 ML PREMIX IV SCH (01:55)
[2017-02-14 04:01] LABS: ABG Base Excess -10.1 MMOL/L (-2.5-2.5); ABG HCO3 16.6 MMOL/L (20-26); ABG PCO2 22.3 MM HG (35-48); ABG PH 7.384 (7.35-7.45); ABG TCO2 11.6 MMOL/L (23-27)
[2017-02-14 04:03] LABS: Basophils % 0.2 % (0.0-0.8); Hematocrit 41.3 VOL% (42.0-52.0); Hemoglobin 13.1 GM/DL (14.0-18.0); Immature Granulocytes % 0.9 %; Lymphocytes # 1.2 10*3/uL (1.4-4.0); Lymphocytes % 10.9 % (21.2-54.2); Mean Corpuscular HGB Conc 31.7 GM/DL (32-36); Mean Corpuscular Hemoglobin 27 PG (27-34); Mean Corpuscular Volume 83.4 FL (87-102); Monocytes # 0.6 10*3/uL (0.11-0.8); Monocytes % 6.1 % (1.7-12.7); NRBC # 0.09 10*3/uL; Neutrophils # 8.6 10*3/uL (1.4-7.4); Neutrophils % 81.9 % (38.7-73.9); Red Blood Count 4.95 MC/CUMM (3.8-5.5); Red Cell Distribution Width 21.1 % (9.3-17.3); White Blood Count 10.5 T/CUMM (4-12)
[2017-02-14 04:07] LABS: Platelet Count 35 T/CUMM (130-400)
[2017-02-14] MEDS: NOREPINEPHRINE 16 MG in SODIUM CHLORIDE 0.9% 234 ML IV SCH ×3 (04:09→16:08)
[2017-02-14] MEDS: DOBUTamine 500 MG/250 ML PREMIX IV SCH ×2 (04:26→12:37)
--- NOTE | 2017-02-14 04:27 | EKG Report ---
Stationary ECG Study [facility] Test Date: 02/13/2017 9:45 PM Pat Name: CLAUDINE WILSON Department: Room: 124 Gender: M [employer] Worker: HAMLET : [id number] Requested by: Jessica Seo Order Number: [id number] Reading MD: KAITLIN QUILES Intervals [place] Rate: 54 P: 95 UT: 231 QRS: -74 QRSD: 166 T: 86 QT: 561 QTc: 548 Interpretive Statements SINUS BRADYCARDIA WITH MARKED SINUS ARRHYTHMIA WITH PROLONGED UT INTERVAL MARKED LEFT AXIS DEVIATION LEFT BUNDLE BRANCH BLOCK Electronically Signed On 02-14-17 13:03:47 CDT by KAITLIN QUILES [email or web address]
[2017-02-14] MEDS: metroNIDAZOLE INJ 500 MG in PREMIX 1 EACH IV SCH ×3 (04:52→20:39)
[2017-02-14] MEDS ORDERED: SODIUM CHLORIDE 0.9% 250 ML IV PRN ×2 (05:11→10:04)
[2017-02-14 05:16] LABS: Calcium 7.4 MG/DL (8.5-10.1); Osmolality,Calculated 282.5 MOS/KG (273-304)
[2017-02-14 05:26] LABS: Potassium 7.4 MMOL/L (3.5-5.1)
[2017-02-14] MEDS: DEXTROSE 50% 25 GM/50 ML VIAL IV PRN ×5 (05:30→16:50)
[2017-02-14 05:41] LABS: CKMB % 0.4 %
[2017-02-14 05:45] LABS: Troponin I Only 3.74 NG/ML (0.00-0.045)
[2017-02-14] MEDS: SODIUM ACETATE 150 MEQ in DEXTROSE 5% 925 ML IV SCH ×2 (06:32→17:03)
[2017-02-14 06:45] LABS: Band Neutrophils 7 % (0-10); Burr Cells Slight; Hypochromasia Slight; Lymphocytes 13 % (20-55); Nucleated Red Blood Cells 2 (0-5); Ovalocytes Slight; Platelet Estimate Decreased; Segmented Neutrophils 74 % (50-85); Total Cells Counted 100
--- NOTE | 2017-02-14 08:13 | XRay Report ---
History: Shortness of breath Date: 02/14/2017 Study: Chest x-ray AP portable Comparison exam: 02/13/2017 The endotracheal and nasogastric tubes remain in place. There is stable cardiomegaly. The mediastinal contours are unchanged. The pulmonary vasculature is not grossly engorged. The study was performed in shallow inspiration. There is still some asymmetric patchy and hazy right infrahilar infiltrate/edema, grossly similar. The left lung is generally clear for shallow breath. There is no gross pleural effusion. Osseous structures are unchanged. Impression: Continued asymmetric patchy and hazy right infrahilar edema/infiltrate, grossly similar. Left lung is generally clear. Otherwise unchanged PROCEDURE INTERPRETED AT [facility] DEPARTMENT OF RADIOLOGY Final Report Signed by: Dr. Yasmeen Lezama
--- NOTE | 2017-02-14 08:15 | XRay Report ---
History: Audible wheezing Date: 02/14/2017 at 7:38 AM Study: Chest x-ray AP portable Comparison exam: 02/14/2017 at 2:51 AM The endotracheal and nasogastric tubes remain in stable satisfactory position. There is stable cardiomegaly. The mediastinal contours are unchanged. The pulmonary vasculature is not engorged. There is again noted to be some patchy and hazy edema/infiltrate over the right infrahilar area, grossly similar. The left lung is generally clear. There is no pleural effusion. There is no pneumothorax. Osseous structures are unchanged. Impression: Continued asymmetric patchy and hazy infrahilar pulmonary edema/infiltrate on the right. Underlying pneumonia cannot be excluded. Otherwise unchanged PROCEDURE INTERPRETED AT [facility] DEPARTMENT OF RADIOLOGY Final Report Signed by: Dr. Yasmeen Lezama
[2017-02-14] MEDS ORDERED: TAMSULOSIN 0.4 MG CAPSULE PO SCH (09:00)
[2017-02-14] MEDS ORDERED: ALLOPURINOL 300 MG TABLET PO SCH (09:00)
[2017-02-14] MEDS ORDERED: CALCIUM (CARBONATE) 600 MG TABLET PO SCH (09:00)
--- NOTE | 2017-02-14 09:01 | Cardiology Progress Note ---
Assessment and Plan (1) Cardiomyopathy Status: Acute Current Visit: Yes Qualifiers: Cardiomyopathy type: unspecified Qualified Code(s): I42.9 - Cardiomyopathy , unspecified (2) Congestive heart failure Status: Acute Current Visit: Yes Qualifiers: Congestive heart failure type: systolic (3) Hypoxemia Status: Acute Current Visit: Yes (4) Cardiopulmonary arrest with successful resuscitation Status: Acute Current Visit: Yes (5) Renal insufficiency Status: Acute Current Visit: Yes (6) Thrombocytopenia Status: Acute Current Visit: Yes (7) Hemoptysis Status: Acute Current Visit: Yes (8) Multiple myeloma Status: Chronic Current Visit: Yes Qualifiers: Multiple myeloma remission status: in remission Qualified Code(s): C90.01 - Multiple myeloma in remission (9) SOB (shortness of breath) Status: Acute Current Visit: Yes (10) Metabolic acidemia Status: Acute Current Visit: Yes (11) Hyperkalemia Status: Acute Current Visit: Yes Cardiology - PN: Subj Interval history: Recycling Manager: None Oncologist: Dr. Lauren Mr. Muñoz is a 61 year old male without a prior cardiac history, with risk factors significant for hypertension. He has a history of multiple myeloma which is followed by Dr. Lauren. He was admitted to the hospital with progressive dyspnea, orthopnea, and some mild hemoptysis. He had an approximate 2-3 week prodrome of heart failure symptoms. Echocardiogram was performed which demonstrated an ejection fraction of 15%. He is also had some thrombocytopenia and chronic renal insufficiency. Yesterday he was very tachypneic, mildly hypoxic, and developed some cardiopulmonary arrest from which she was resuscitated. He has been intubated and supported with pressors. February 14, 2017: The patient has had some increase in his pressor support. In general, I believe the dobutamine was worsening his hypotension so this was discontinued. He continues to be anuric, has had worsening metabolic acidemia and today also has hyperkalemia and hypoglycemia (despite not receiving hypoglycemic agents). He has a worsening thrombocytopenia. There is dark- colored return from his NG tube. Impression and plan: 1. Congestive heart failure. This appears to be at least a subacute presentation, there is no prior documentation of cardiomyopathy. This is secondary to systolic dysfunction and renal insufficiency. Curiously his BNP is relatively low despite his severe renal failure. Currently his blood pressure will not allow any FRANCINE inhibitor or further afterload reduction. He has not tolerated aggressive diuresis. Yesterday the dobutamine seemed to worsen his hypotension so we discontinued it, although I will try to rechallenge him today and see how his hemodynamics respond. 2. Hemoptysis-significance of this is unclear. 3. Multiple myeloma -Reportedly stable 4. Acute renal failure on chronic renal insufficiency-this is likely the result of his hypotension and cardiopulmonary arrest yesterday, with worsening aggravation from his low cardiac output. He is hyperkalemic today and has received some medical therapy for this. His hemodynamics would not allow dialysis. 5. Thrombocytopenia-chronicity unknown. This is worsening. This has precluded any invasive cardiac workup. 6. Respiratory failure-pulmonary edema is likely contributing to this. He is also being treated for any infectious process. Is relatively low BNP given his other clinical picture suggests that this may be multifactorial respiratory failure. 7. Hypoglycemia-likely related to his multiorgan failure. 8. Metabolic acidosis-multifactorial including low cardiac output, acute renal failure, cardiopulmonary arrest. In general his overall condition remains critical with a very poor prognosis for recovery. I have conveyed this to the family and they are aware of his grim condition. Exam (Progress Note) - Constitutional Vitals: Period Temp Pulse Resp BP Sys/Connell Pulse Ox Last 24 Hr 97.0 F-98.7 F 54-99 17-50 78-129/32-92 85-100 Exam: General appearance: normal weight, no acute distress, intubated, not spontaneously arousable during the exam, minimally responsive to stimulation. - Head Head exam: Present: normocephalic, atraumatic,. Absent: hematoma, laceration - Eye Eye exam: Absent: conjunctival injection, nystagmus, periorbital swelling, scleral icterus, laceration to eyelids Pupils: Present: PERRL, dilation. Absent: constricted, fixed, irregular, unequal - ENT ENT exam: Present: normal exam, normal external ear exam - Neck Neck exam: Present: It is difficult to assess for JVD. Absent: lymphadenopathy , meningismus, tenderness, thyromegaly - Respiratory Respiratory exam: Present: clear to auscultation bilaterally anteriorly, there is normal rise with ventilated breaths. Absent: accessory muscle use, chest wall tenderness - Cardiovascular Cardiovascular exam: Present: regular rate and rhythm. Absent: carotid bruit, gallop, JVD, rubs - GI/Abdominal GI/Abdominal exam: Present: Hypoactive bowel sounds, protuberant. Absent: firm , guarding, hernia, mass, tenderness, rebound, soft - Extremities Exam Extremities exam: Present: 1+ bilateral lower extremity edema. The right groin is without evidence of hematoma surrounding the right arterial line and central venous line which appeared to be well placed. - Back Exam Back exam: Unable to assess due to patient being on the ventilator - Neurological Exam Neurological exam: Unable to fully assess due to patient being on the ventilator. She does appear to move all 4 extremities. - Psychiatric Psychiatric exam: Unable to assess due to patient being on the ventilator. - Skin Skin exam: Present: normal color, warm, dry, intact. Absent: cyanosis, diaphoretic, rash, urticaria Result/EKG - Labs CBC & BMP: 02/14/17 03:55 02/14/17 03:55 Lab Results: I have reviewed the past 24 hour labs Labs: Laboratory Results - last 24 hr 02/13/17 02/13/17 02/13/17 09:45 13:01 14:15 WBC RBC Hgb Hct MCV MCH MCHC RDW Plt Count Neut % (Auto) Lymph % (Auto) [place] % (Auto) Eos % (Auto) Baso % (Auto) Neut # (Auto) Lymph # (Auto) [place] # (Auto) Eos # (Auto) Baso # (Auto) Total Counted Immature Gran % Nucleated RBC % Immature Gran # Segmented Neutrophils Band Neutrophils Lymphocytes Monocytes Nucleated RBCs Nucleated RBCs # Platelet Estimate Hypochromasia Ovalocytes Latasha Cells Morphology Comment ABG pH 7.458 H ABG pCO2 19.0 L* ABG pO2 90.7 ABG HCO3 17.8 L ABG Total CO2 11.7 L ABG O2 Saturation 97.1 ABG Base Excess -8.4 L Sodium Potassium Chloride Carbon Dioxide Anion Gap BUN Creatinine GFR Calculation BUN/Creatinine Ratio Glucose POC Glucose Calculated Osmolality Calcium Magnesium Total Creatine Kinase CK-MB (CK-2) CK and CKMB Interp Troponin I 0.096 H 0.122 H D B-Natriuretic Peptide Amylase Lipase 02/13/17 02/13/17 02/13/17 15:16 15:16 16:29 WBC RBC Hgb Hct MCV MCH MCHC RDW Plt Count Neut % (Auto) Lymph % (Auto) [place] % (Auto) Eos % (Auto) Baso % (Auto) Neut # (Auto) Lymph # (Auto) [place] # (Auto) Eos # (Auto) Baso # (Auto) Total Counted Immature Gran % Nucleated RBC % Immature Gran # Segmented Neutrophils Band Neutrophils Lymphocytes Monocytes Nucleated RBCs Nucleated RBCs # Platelet Estimate Hypochromasia Ovalocytes [place] Cells Morphology Comment ABG pH 7.426 ABG pCO2 24.2 L ABG pO2 480.2 H ABG HCO3 15.6 L ABG Total CO2 16.3 L ABG O2 Saturation 100.0 ABG Base Excess -6.7 L Sodium 141 Potassium 5.0 Chloride 104 Carbon Dioxide 20 L Anion Gap 22.0 H BUN 23 H Creatinine 3.60 H GFR Calculation 30 BUN/Creatinine Ratio 6.00 Glucose 94 POC Glucose Calculated Osmolality 284.3 Calcium 7.7 L Magnesium 2.2 Total Creatine Kinase 474 H CK-MB (CK-2) 1.8 CK and CKMB Interp Troponin I 0.151 H D B-Natriuretic Peptide Amylase 64 Lipase 250.0 02/13/17 02/13/17 02/13/17 16:56 16:57 19:05 WBC 12.3 H D RBC 5.00 Hgb 13.2 L Hct 41.7 L MCV 83.4 L MCH 26 L MCHC 31.7 L RDW 20.8 H Plt Count 70 L Neut % (Auto) 69.0 Lymph % (Auto) 20.7 L [place] % (Auto) 8.5 Eos % (Auto) 0.0 Baso % (Auto) 0.3 Neut # (Auto) 8.5 H Lymph # (Auto) 2.6 [place] # (Auto) 1.0 H Eos # (Auto) 0.0 Baso # (Auto) 0.0 Total Counted Immature Gran % 1.5 Nucleated RBC % 0.4 Immature Gran # 0.19 Segmented Neutrophils Band Neutrophils Lymphocytes Monocytes Nucleated RBCs Nucleated RBCs # 0.05 Platelet Estimate Hypochromasia Ovalocytes [place] Cells Morphology Comment ABG pH ABG pCO2 ABG pO2 ABG HCO3 ABG Total CO2 ABG O2 Saturation ABG Base Excess Sodium Potassium Chloride Carbon Dioxide Anion Gap BUN Creatinine GFR Calculation BUN/Creatinine Ratio Glucose POC Glucose 52 L 90 Calculated Osmolality Calcium Magnesium Total Creatine Kinase CK-MB (CK-2) CK and CKMB Interp Troponin I B-Natriuretic Peptide Amylase Lipase 02/13/17 02/13/17 02/13/17 19:06 20:09 21:40 WBC RBC Hgb Hct MCV MCH MCHC RDW Plt Count Neut % (Auto) Lymph % (Auto) [place] % (Auto) Eos % (Auto) Baso % (Auto) Neut # (Auto) Lymph # (Auto) [place] # (Auto) Eos # (Auto) Baso # (Auto) Total Counted Immature Gran % Nucleated RBC % Immature Gran # Segmented Neutrophils Band Neutrophils Lymphocytes Monocytes Nucleated RBCs Nucleated RBCs # Platelet Estimate Hypochromasia Ovalocytes [place] Cells Morphology Comment ABG pH 7.357 7.397 ABG pCO2 22.9 L 25.2 L ABG pO2 330.7 H 410.0 H ABG HCO3 12.6 L 18.2 L ABG Total CO2 13.3 L 13.6 L ABG O2 Saturation 99.7 100.0 ABG Base Excess -10.7 L -7.8 L Sodium Potassium Chloride Carbon Dioxide Anion Gap BUN Creatinine GFR Calculation BUN/Creatinine Ratio Glucose POC Glucose Calculated Osmolality Calcium Magnesium Total Creatine Kinase 708 H D CK-MB (CK-2) 4.5 H CK and CKMB Interp Troponin I 1.240 H D B-Natriuretic Peptide Amylase Lipase 02/14/17 02/14/17 02/14/17 03:55 03:55 03:55 WBC 10.5 RBC 4.95 Hgb 13.1 L Hct 41.3 L MCV 83.4 L MCH 27 MCHC 31.7 L RDW 21.1 H Plt Count 35 L* D Neut % (Auto) 81.9 H Lymph % (Auto) 10.9 L [place] % (Auto) 6.1 Eos % (Auto) 0.0 Baso % (Auto) 0.2 Neut # (Auto) 8.6 H Lymph # (Auto) 1.2 L [place] # (Auto) 0.6 Eos # (Auto) 0.0 Baso # (Auto) 0.0 Total Counted 100 Immature Gran % 0.9 Nucleated RBC % 0.9 Immature Gran # 0.10 Segmented Neutrophils 74 Band Neutrophils 7 Lymphocytes 13 L Monocytes 6 Nucleated RBCs 2 Nucleated RBCs # 0.09 Platelet Estimate Decreased Hypochromasia Slight Ovalocytes Slight [place]asha Cells Slight Morphology Comment ABG pH ABG pCO2 ABG pO2 ABG HCO3 ABG Total CO2 ABG O2 Saturation ABG Base Excess Sodium 139 Potassium 7.4 H* D Chloride 104 Carbon Dioxide 13 L Anion Gap 29.4 H BUN 42 H D Creatinine 5.90 H GFR Calculation 17 BUN/Creatinine Ratio 7.00 Glucose 15 L* POC Glucose Calculated Osmolality 282.5 Calcium 7.4 L Magnesium Total Creatine Kinase CK-MB (CK-2) CK and CKMB Interp Troponin I B-Natriuretic Peptide 398 H Amylase Lipase 02/14/17 02/14/17 02/14/17 03:55 04:00 05:23 WBC RBC Hgb Hct MCV MCH MCHC RDW Plt Count Neut % (Auto) Lymph % (Auto) [place] % (Auto) Eos % (Auto) Baso % (Auto) Neut # (Auto) Lymph # (Auto) [place] # (Auto) Eos # (Auto) Baso # (Auto) Total Counted Immature Gran % Nucleated RBC % Immature Gran # Segmented Neutrophils Band Neutrophils Lymphocytes Monocytes Nucleated RBCs Nucleated RBCs # Platelet Estimate Hypochromasia Ovalocytes [place] Cells Morphology Comment ABG pH 7.384 ABG pCO2 22.3 L ABG pO2 156.0 H ABG HCO3 16.6 L ABG Total CO2 11.6 L ABG O2 Saturation 99.0 ABG Base Excess -10.1 L Sodium Potassium Chloride Carbon Dioxide Anion Gap BUN Creatinine GFR Calculation BUN/Creatinine Ratio Glucose POC Glucose < 20 L* Calculated Osmolality Calcium Magnesium Total Creatine Kinase 1985 H D CK-MB (CK-2) 7.5 H CK and CKMB Interp 0.4 Troponin I 3.740 H D B-Natriuretic Peptide Amylase Lipase 02/14/17 02/14/17 02/14/17 05:47 06:14 06:43 WBC RBC Hgb Hct MCV MCH MCHC RDW Plt Count Neut % (Auto) Lymph % (Auto) [place] % (Auto) Eos % (Auto) Baso % (Auto) Neut # (Auto) Lymph # (Auto) [place] # (Auto) Eos # (Auto) Baso # (Auto) Total Counted Immature Gran % Nucleated RBC % Immature Gran # Segmented Neutrophils Band Neutrophils Lymphocytes Monocytes Nucleated RBCs Nucleated RBCs # Platelet Estimate Hypochromasia Ovalocytes [place] Cells Morphology Comment ABG pH ABG pCO2 ABG pO2 ABG HCO3 ABG Total CO2 ABG O2 Saturation ABG Base Excess Sodium Potassium Chloride Carbon Dioxide Anion Gap BUN Creatinine GFR Calculation BUN/Creatinine Ratio Glucose POC Glucose 30 L* 48 L* 87 Calculated Osmolality Calcium Magnesium Total Creatine Kinase CK-MB (CK-2) CK and CKMB Interp Troponin I B-Natriuretic Peptide Amylase Lipase - Diagnostic Findings Procedure: Chest x-ray: report reviewed by me - EKG EKG results: interpreted by me, sinus rhythm
[2017-02-14] MEDS ORDERED: SODIUM POLYSTYRENE SULFATE 15 GM/60 ML BOTTLE PO ONE (09:13)
[2017-02-14] MEDS: ASPIRIN EC 325 MG TABLET PO SCH (09:17)
[2017-02-14] MEDS: ENOXAPARIN 30 MG/0.3 ML SYRINGE SUBCUT SCH (09:17)
--- NOTE | 2017-02-14 10:06 | Oncology Progress Note ---
Assessment and Plan (1) SOB (shortness of breath) Status: Acute Current Visit: Yes (2) Myeloma Status: Acute Current Visit: Yes Oncology Subjective PN Interval history: Mr. Muñoz is now status post CODE BLUE. The etiology of this is unknown at this time but his prognosis does appear quite grim. His platelet count has dropped after the events of yesterday which is not surprising given his history of a transplant. Blood counts are very sensitive to any acute event particularly hypotension. Since he is having bloody drainage to his NG tube I think it would benefit him to have 1 unit of platelets. I will write for these. Otherwise there is very little to offer from hematology standpoint. Again from reading his records, he appeared to be in remission from his myeloma and was currently just taking low-dose maintenance Revlimid on an outpatient setting. After transplant some people remain in remission for 1-2 decades. Family is aware of his very poor prognosis at this time given his current situation. Exam - Constitutional Vitals: Period Temp Pulse Resp BP Sys/Connell Pulse Ox Last 24 Hr 97.0 F-98.7 F 54-99 17-50 78-129/32-92 85-100 - Respiratory Respiratory exam: Present: CTAB. Absent: wheezes - Cardiovascular Cardiovascular exam: Present: tachycardia. Absent: JVD - GI/Abdominal GI/Abdominal exam: Present: distended, soft. Absent: ascites, mass - Skin Skin exam: Present: warm, dry Results - Labs CBC & BMP: 02/14/17 03:55 02/14/17 03:55 Lab Results: I have reviewed the past 24 hour labs
[2017-02-14] MEDS: LEVOTHYROXINE 100 MCG TABLET PO SCH (10:24)
[2017-02-14] MEDS: MAGNESIUM OXIDE 400 MG TABLET PO SCH (10:24)
[2017-02-14] MEDS: GABAPENTIN 600 MG TABLET PO SCH (10:25)
[2017-02-14] MEDS ORDERED: PANTOPRAZOLE 40 MG VIAL IV SCH (10:30)
[2017-02-14] MEDS: PANTOPRAZOLE 40 MG TABLET PO SCH (10:41)
--- NOTE | 2017-02-14 11:00 | Nephrology Consult Note ---
History of Present Illness Chief complaint: ARF History of present illness: Mr. Muñoz is a 61 year old male whom we are asked to see following a cardiac arrest yesterday. He is now on a ventilator hypotensive on multiple pressors and unresponsive along with being an uric. He has developed a significant metabolic acidosis and hyperkalemia. His current blood pressure is 90 systolic on big doses of levo fed Bandar-Synephrine and dopamine. He is status post bone marrow transplant for multiple myeloma and takes Revlimid maintenance therapy. He has been found to have a cardiomyopathy with an ejection fraction of 15%. On exam he is unresponsive he is on a ventilator his chest is clear his abdomen is soft extremities are without edema. Chest x-ray demonstrates right hilar fullness Laboratory as mentioned shows hypokalemia metabolic acidosis and rising serum creatinine. Impression acute renal failure in the midst of multi-system organ failure #2 history of multiple myeloma status post bone marrow transplant #3 cardiomyopathy with ejection fraction 15% Suggestions I agree with conservative measures to treat hyperkalemia particularly correction of his metabolic acidosis. We are going to have to be careful with volume in the midst of his anuria. I do not think he will tolerate any attempted hemodialysis given his hemodynamic instability. We will continue to follow Home Medications Medication Instructions Recorded Confirmed Type Aspirin Tab 325 mg PO DAILY 12/10/14 02/13/17 History HYDROcodone/ACETAMIN 10-325 [[place] 1 tablet PO Q4-6H PRN 12/10/14 02/13/17 History 10-325] Furosemide Tab [Lasix Tab] 40 mg PO BID 12/11/14 02/13/17 History Lenalidomide [Revlimid] 5 mg PO QOTHER DAY 12/11/14 02/13/17 History Magnesium Oxide 250 mg PO DAILY 12/11/14 02/13/17 History Allopurinol 300 mg PO DAILY 02/13/17 02/13/17 History Calcium Carbonate [Calcium] 600 mg PO DAILY 02/13/17 02/13/17 History Cyclobenzaprine [Flexeril] 10 mg PO DAILY PRN 02/13/17 02/13/17 History Gabapentin 600 mg PO BID 02/13/17 02/13/17 History Lenalidomide [Revlimid] 5 mg PO QOTHER DAY 02/13/17 02/13/17 History Levothyroxine Tab [Synthroid Tab] 100 mcg PO DAILY 02/13/17 02/13/17 History Losartan Potassium 50 mg PO DAILY 02/13/17 02/13/17 History Magnesium 250 mg PO DAILY 02/13/17 02/13/17 History Tamsulosin [Flomax] 0.4 mg PO DAILY 02/13/17 02/13/17 History Allergies Allergy/AdvReac Type Severity Reaction Status Date / Time No Known Allergies Allergy Unverified 02/13/17 05:28 Medical,Surgical,& Family Hx - Medical History Cardio: History of: Hypertension Neurology: No history of: Seizures Endocrine: History of: Dyslipidemia Gastrointestinal: No history of: GI Problems (screening) Musculoskeletal: History of: Musculoskeletal Problems (Bone CA) Other: History of: Cancer (bone cancer) - Surgical History Cardiac Surgeries: Patient Denies: Cardiac Catheterization Thoracic Surgeries: Patient denies;: Organ Transplant (on wait list) - Family History Family History: Reports;: Family Diabetes (mother sister) - Social History Smoking Status: Never smoker Frequency of Alcohol Use: None Type of Drug Use: None Exam - Vital Signs Vital signs: Period Temp Pulse Resp BP Sys/Connell Pulse Ox Last 24 Hr 97.0 F-98.7 F 54-99 17-50 78-129/32-92 85-100 - General Appearance General appearance: well-developed, well-nourished, appears started age EENT: ATNC Neck: no JVD, no thyromegaly, no carotid bruit, supple Respiratory: no kyphosis, no scoliosis Cardiology: no murmurs, no rub, no gallops, no edema, regular rate, regular rhythm, normal S1, normal S2 Gastrointestinal: hypoactive bowel sounds Integumentary: no rash, warm and dry Neurologic: obtunded Musculoskeletal: no deformities, no erythema, no cyanosis, no clubbing Psychiatric: mood/affect appropriate (intubated, unresponsive), cooperative Results - Labs CBC & BMP: 02/14/17 03:55 02/14/17 03:55 Lab Results: I have reviewed the past 24 hour labs Assessment and Plan - Time spent with patient Time spent with patient: Greater than 30 minutes (ACute renal failure) Specialty Discharge - Follow Up or Referrals - Speciality Discharge Instructions Nephrology Instructions: Minimize fluid as much as possible. Correct acidosis. [place] is extremely poor
--- NOTE | 2017-02-14 11:02 | Hospitalist Progress Note ---
Hospitalist: Subjective Interval history: Yesterday, patient went into cardiopulmonary arrest s/p ACLS protocol and is now intubated with MV. Chart reviewed. Spoke to nursing staff. Case discussed with Drs. Mondragon and Toribio. Patient is on triple pressor support. He is unreponsive and without sedation. Exam - Constitutional Vitals: Period Temp Pulse Resp BP Sys/Connell Pulse Ox Last 24 Hr 97.0 F-98.7 F 54-99 17-50 78-129/32-92 85-100 General appearance: morbidly obese (intubated with MV: AC, FIo2: 50%, PEEP: 2, Tv: 600, rate: 36; unresponsive; not on sedation) - Eye Eye exam: Present: periorbital swelling, scleral icterus (mild scleral icterus; pupils dilated but sluggishly reactive) Pupils: Present: dilated (+NGT) - Respiratory Respiratory exam: Present: decreased breath sounds. Absent: rales, stridor, wheezes - Cardiovascular Cardiovascular exam: Present: regular rate and rhythm - GI/Abdominal GI/Abdominal exam: Present: firm, hypoactive bowel sounds, soft - Extremities Exam Extremities exam: Present: edema (trace edema; decreased distal pulses) - Neurological Exam Neurological exam: Present: other (unresponsive) Results - Labs CBC & BMP: 02/14/17 03:55 02/14/17 03:55 - Impressions 1. s/p cardiopulmonary arrest 2. Shock, could be cardiogenic vs septic; on triple pressor support 3. Elevated troponins: could be ACS or 2nd to arrest; unable to anticoagulate given profound thrombocytopenia 4. Severe cardiomyopathy with EF: 15%; now off dobutamine; being followed by cardiology; appreciate help 5. Acute hypoxic respiratory failure: s/p intubation with MV 6. Suspected pneumonia, chest x-ray shows hazy infrahilar pulmonary edema/ infiltrate on the right 7. Multiple episodes of bowel movements; stools were mucoid and not loose; these episodes occured on yesterday; being treated for presumptive c. fiff 8. Suspected anoxic/hypoxic brain injury 9. Thrombocytopenia 10. Hemopytsis/UGIB 11. h/o multiple myeloma s/p bone marrow transplant 12. persistent hypoglycemia 13. AGMA 14. Acute on chronic renal failure, likely 2nd to ATN 15. Hyperkalemia 16. Medications: will d/c ones he does not need Plan: appreciate help by oncology/cardiology/nephrology/PCCM continue pressor support; add steroids obtain head CT when more stable await results of BLE venous dopplers add clindamycin to levaquin treat hyperkalemia may need d10 for persistent hypoglycemia; will wait to see what Dr. Mondragon recommends monitor platlets and employ transfusion protocol continue bicarbonate drip d/c lovenox/gabapentin/flomax/allopurinol/kcl/asa/revlimid await stool/sputum/blood culture results; check lactate level and procalcitonin levels; continue current antibiotics DVT and GI prophalaxis
--- NOTE | 2017-02-14 11:06 | Pulmonology Consult Note ---
History of Present Illness Chief complaint: Cardiopulmonary arrest. MM. AMI. Shock. A on CRF History of present illness: Mr. Muñoz is a 61 year old black male whom I been asked to see in consultation for management of mechanical ventilation and pulmonary status. This patient was admitted to the hospital with progressive shortness of breath orthopnea and mild hemoptysis. He had had symptoms for 2-3 weeks leading up to this. It turned out that he was in congestive heart failure. His cardiac ejection fraction was 15%. He has developed thrombocytopenia History. He had chronic renal failure, history of multiple myeloma, high blood pressure, hyperlipidemia appear there is a history of chronic renal failure. There is no history of diabetes. The patient's status rapidly deteriorated he had a cardiac arrest. Followed by a respiratory arrest which required intubation mechanical ventilation. Beginning on 02/13/2017 I have managed his ventilator. His chest x-ray showed possible mild congestive heart failure and there is a right perihilar infiltrate which is pneumonia until that is ruled out. He was profoundly hypotensive. He has required multiple pressor agents. He was also have not found to have hypoglycemia. So far there are no positive cultures. 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 Also hypoglycemia would be a possible injuring agent. Social history. Patient is never smoked and he does not use alcohol. He denies drug abuse Family history. His mother and sister had diabetes. Allergies none. ABGs pH of 7.38. PCO2 is 22.3. PO2 is 156. Bicarb is 16.6. Lab. Creatinine has increased from 3.60-5.90 with a BUN of 42 sodium is 139 potassium 7.4 chloride is 104. Creatinine is 1985. Troponin is 3.74. Natruretic peptide was 02/13/2017 was 879 and today is dropped to 398. Urine shows no evidence of infection. Admit white count was 12,300 with 69 segs and 21 lymphs this is dropped to 10,500 with 81.9 segs and 10.9 lymphocytes. Platelet count at admission was 70,000 and this is dropped to 35,000. Total protein was 7.0 albumin was low at 2.8 globulin is up at 4.2. Chest x-ray. Admit chest x-ray which was done at about 5 AM on 02/13/2017 showed cardiomegaly small bilateral pleural effusions left hilum appears normal the right hilum is engorged or enlarged pulmonary arteries look prominent. Mediastinum is normal. There is interstitial edema in the perihilar areas bilaterally. Chest x-ray. 02/14/2017, 738. Cardiomegaly. Left lung is mainly clear. There is enlargement of the right hilum and perihilar infiltrate. Pulmonary edema appears to be resolved. There is some peribronchial cuffing around the left hilum. Physical exam. Vital signs. See below. Neurologic. Patient is comatose I cannot evaluate his cranial nerves and his long track motor function Face. Symmetrical. No swelling of lips or tongue. Neck. Symmetrical. No meningismus. Thyroid was not palpated Chest. Slight large airway congestion Heart. Far lateral PMI Abdomen. Nondistended. Rare bowel sounds. Extremities. Very mild chronic venous stasis around the feet and ankles Carotid pulses are fair upper extremity pulses can be palpated Dopplers and needed here lower extremity pulses in the lower extremities are cold secondary to hypotensive. Venous exam of the neck and upper extremities are normal lower extremities reveal moderate mild evidence of chronic venous The remainder of the physical exam is negative. Impression. 1. Acute cardiac arrest with myocardial injury with associated shock and metabolic acidosis and probable central nervous system injury. 2. Underlying heart disease with ejection fraction 20% 3. Acute on chronic renal failure 4. Multiple myeloma 5. Severe hypoglycemia. No history of diabetes mellitus but there is a family history of diabetes 6. Thrombocytopenia 7. See past history 8. See Dr. Seo's history, Dr. Jalen Hu oncology hematology consultation and Dr. Silviano Mondragon's nephrology, we have all discussed the case and we have coordinated our care Plan. 1. Blood culture 2. Sputum for Gram stain culture and sensitivity 3. Legionella titer 4. Cold agglutinins 5. Daily chest x-rays and ABGs 6. Mechanical ventilation weaning protocol 7. Physical therapy protocol while on mechanical ventilation. 8. Doppler venograms of the lower extremities. 9. Proton pump inhibitor protocol 10. Deep venous thrombophlebitis prevention protocol. 11. Decadron 8 mg IV push every 8 hours. I will use this to help with prevention of large as well as possibly central nervous system effect. 12. Medicines been reviewed and multiple medicines have been held. See orders 13. See orders. Home Medications Medication Instructions Recorded Confirmed Type Aspirin Tab 325 mg PO DAILY 12/10/14 02/13/17 History HYDROcodone/ACETAMIN 10-325 [[place] 1 tablet PO Q4-6H PRN 12/10/14 02/13/17 History 10-325] Furosemide Tab [Lasix Tab] 40 mg PO BID 12/11/14 02/13/17 History Lenalidomide [Revlimid] 5 mg PO QOTHER DAY 12/11/14 02/13/17 History Magnesium Oxide 250 mg PO DAILY 12/11/14 02/13/17 History Allopurinol 300 mg PO DAILY 02/13/17 02/13/17 History Calcium Carbonate [Calcium] 600 mg PO DAILY 02/13/17 02/13/17 History Cyclobenzaprine [Flexeril] 10 mg PO DAILY PRN 02/13/17 02/13/17 History Gabapentin 600 mg PO BID 02/13/17 02/13/17 History Lenalidomide [Revlimid] 5 mg PO QOTHER DAY 02/13/17 02/13/17 History Levothyroxine Tab [Synthroid Tab] 100 mcg PO DAILY 02/13/17 02/13/17 History Losartan Potassium 50 mg PO DAILY 02/13/17 02/13/17 History Magnesium 250 mg PO DAILY 02/13/17 02/13/17 History Tamsulosin [Flomax] 0.4 mg PO DAILY 02/13/17 02/13/17 History Allergies Allergy/AdvReac Type Severity Reaction Status Date / Time No Known Allergies Allergy Unverified 02/13/17 05:28 Exam ([facility] H&P - Constitutional Vitals: Period Temp Pulse Resp BP Sys/Connell Pulse Ox Last 24 Hr 97.0 F-98.7 F 54-99 17-50 78-129/32-92 85-100 Medical,Surgical,& Family Hx - Medical History Cardio: History of: Hypertension Neurology: No history of: Seizures Endocrine: History of: Dyslipidemia Gastrointestinal: No history of: GI Problems (screening) Musculoskeletal: History of: Musculoskeletal Problems (Bone CA) Other: History of: Cancer (bone cancer) - Surgical History Cardiac Surgeries: Patient Denies: Cardiac Catheterization Thoracic Surgeries: Patient denies;: Organ Transplant (on wait list) - Family History Family History: Reports;: Family Diabetes (mother sister) - Social History Smoking Status: Never smoker Frequency of Alcohol Use: None Type of Drug Use: None Results - Labs CBC & BMP: 02/14/17 03:55 07/02/17 03:55
[2017-02-14] MEDS ORDERED: PANTOPRAZOLE 40 MG VIAL IV ONE (11:51)
--- NOTE | 2017-02-14 11:53 | Ultrasound Report ---
History: Shortness of breath Date: 02/14/2017 Study: Bilateral lower extremity color-flow venous Doppler study Comparison exam: No previous similar available Color Doppler, wave form analysis, and compression analysis of the deep veins of both lower extremities from the common femoral vein level through the popliteal vein level shows that the veins are readily compressible. There is no abnormal intraluminal material to suggest thrombus. Waveform analysis is unremarkable. Ultrasound images were captured and archived Impression: Normal bilateral lower extremity color flow venous Doppler study. No evidence of acute DVT PROCEDURE INTERPRETED AT [facility] DEPARTMENT OF RADIOLOGY Final Report Signed by: Dr. Yasmeen Lezama
[2017-02-14] MEDS: PHENYLEPHRINE INJ 80 MG in SODIUM CHLORIDE 0.9% 242 ML IV SCH ×2 (12:15→22:28)
[2017-02-14 12:46] LABS: Osmolality,Calculated 292.7 MOS/KG (273-304)
[2017-02-14 12:47] LABS: Potassium 7.1 MMOL/L (3.5-5.1)
[2017-02-14 12:48] LABS: Calcium 6.6 MG/DL (8.5-10.1)
[2017-02-14] MEDS: CLINDAMYCIN INJ 300 MG in PREMIX 1 EACH IV SCH ×2 (13:51→20:39)
[2017-02-14] MEDS: DEXAMETHASONE 4 MG/1 ML VIAL IV SCH ×2 (13:51→21:22)
[2017-02-14 13:57] LABS: Apearance,Urine CLOUDY (Clear); Bilirubin,Urine Negative (Negative); Blood, Urine Large mg/dL (Negative); Glucose,Urine (UA) 50 mg/dL (Negative); Ketones,Urine Negative (Negative); Nitrite,Urine Negative (Negative); Protein,Urine 100 MG/DL; RBC,Urine 695 /HPF (0-4); Urine Specific Gravity 1.011 (1.001-1.035); Urine Urobilinogen < 2.0 EU/DL (0.2-1.0)
[2017-02-14 13:58] LABS: Urine Color Dark yellow (Yellow)
[2017-02-14 17:38] LABS: Calcium 7.1 MG/DL (8.5-10.1)
[2017-02-14 17:39] LABS: Magnesium 2.4 MG/DL (1.8-2.4); Osmolality,Calculated 291.7 MOS/KG (273-304)
[2017-02-14 17:41] LABS: Potassium 7.5 MMOL/L (3.5-5.1); Troponin I Only 7.6 NG/ML (0.00-0.045)
[2017-02-14 18:30] LABS: CKMB % 0.1 %
[2017-02-14] MEDS: PANTOPRAZOLE 40 MG VIAL IV SCH (20:39)
[2017-02-15 02:07] LABS: ABG Base Excess -6.9 MMOL/L (-2.5-2.5); ABG HCO3 18.9 MMOL/L (20-26); ABG Oxygen Saturation 99.2 % (95-100); ABG PCO2 21.2 MM HG (35-48); ABG PH 7.462 (7.35-7.45); ABG TCO2 13.3 MMOL/L (23-27)
[2017-02-15] MEDS: DOPamine 800 MG/250 ML PREMIX IV SCH ×2 (02:23→23:51)
[2017-02-15] MEDS: CLINDAMYCIN INJ 300 MG in PREMIX 1 EACH IV SCH ×4 (02:23→19:43)
[2017-02-15 02:34] LABS: Calcium 6.2 MG/DL (8.5-10.1)
[2017-02-15 02:37] LABS: Potassium 6.6 MMOL/L (3.5-5.1)
[2017-02-15 03:05] LABS: Basophils # 0.1 10*3/uL (0.0-0.2); Basophils % 0.4 % (0.0-0.8); Hematocrit 39.5 VOL% (42.0-52.0); Hemoglobin 12.3 GM/DL (14.0-18.0); Immature Granulocytes % 1.7 %; Immature Granulocytes Absolute 0.21 #; Lymphocytes % 8.5 % (21.2-54.2); Mean Corpuscular HGB Conc 31.1 GM/DL (32-36); Mean Corpuscular Hemoglobin 27 PG (27-34); Mean Corpuscular Volume 85.3 FL (87-102); Monocytes # 0.4 10*3/uL (0.11-0.8); Monocytes % 3.4 % (1.7-12.7); Neutrophils # 10.4 10*3/uL (1.4-7.4); Platelet Count 53 T/CUMM (130-400); Red Blood Count 4.63 MC/CUMM (3.8-5.5); Red Cell Distribution Width 20.8 % (9.3-17.3); White Blood Count 12.1 T/CUMM (4-12)
[2017-02-15] MEDS: SODIUM ACETATE 150 MEQ in DEXTROSE 5% 925 ML IV SCH ×2 (03:05→14:03)
[2017-02-15] MEDS: metroNIDAZOLE INJ 500 MG in PREMIX 1 EACH IV SCH ×3 (04:30→20:29)
[2017-02-15 05:09] LABS: Band Neutrophils 2 % (0-10); Eosinophils 1 % (0-10); Lymphocytes 7 % (20-55); Ovalocytes 2+; Platelet Estimate Decreased; Segmented Neutrophils 86 % (50-85); Total Cells Counted 100
[2017-02-15 05:10] LABS: Hypochromasia 2+
[2017-02-15] MEDS: DEXAMETHASONE 4 MG/1 ML VIAL IV SCH ×3 (06:40→21:07)
--- NOTE | 2017-02-15 07:16 | CT Report ---
CT head/brain wo con Indication: Clinical concern for hemorrhage. Comparison: None. Technique: CT of the brain was performed without administration of intravenous contrast. The CT examination was performed using one or more of the following dose reduction techniques: Automatic exposure control, adjustment of the mA and kV according to patient size, use of acute or iterative reconstruction techniques. Findings: There is no evidence of acute intracranial mass, hemorrhage, or infarction. Generalized cerebral atrophy is present. Areas of decreased attenuation within the periventricular white matter and cerebral white matter are present which could be compatible with microvascular ischemia. The basal cisterns are patent. No significant abnormality is demonstrated to involve the posterior fossa or cerebellum. Orbits and globes demonstrate no evidence of significant pathology. The paranasal sinuses are clear. No significant abnormality is demonstrated to involve the mastoid air cells. The calvarium is grossly abnormal in appearance with diffusely mottled appearance of the calvarium particularly within the mid to upper calvarium but also involving to some degree the sphenoid wings. Soft tissues overlying the calvarium demonstrate no significant abnormalities. Impression: 1. No CT evidence of acute intracranial pathology. 2. The appearance of the calvarium is considered compatible with possible multiple myeloma. Other permeative process could include leukemia. 02/15/2017 7:01 AM PROCEDURE INTERPRETED AT [facility] DEPARTMENT OF RADIOLOGY Final Report Signed by: Dr. Donald Baker
--- NOTE | 2017-02-15 07:27 | Pulmonology Progress Note ---
Pulmonary - PN: Subj Interval history: This is a 61-year-old black male whom I saw in pulmonary consultation on 2016. I started managing his ventilator on 02/13/2017. My impressions were 1. Acute cardiac arrest with myocardial injury with associated shock and metabolic acidosis and probable central nervous system injury. 2. Underlying heart disease with ejection fraction 20% 3. Acute on chronic renal failure 4. Multiple myeloma 5. Severe hypoglycemia. No history of diabetes mellitus but there is a family history of diabetes 6. Thrombocytopenia 7. See past history 8. See Dr. Seo's history, Dr. Jalen Hu oncology hematology consultation and Dr. Silviano Mondragon's nephrology, we have all discussed the case and we have coordinated our care 02/15/2017. This patient's had an acute IL. His ejection fraction is 20%. He has had a significant metabolic acidosis. He is been hypotensive but this is improving slightly. He appears to have an anoxic injury but he is opening his eyes now CT of the brain shows changes compatible with his known multiple myeloma. Doppler venogram showed no evidence of deep venous thrombophlebitis. Patient's chest x-ray shows mild pulmonary edema. On mechanical ventilation FiO2 50% patient has a pH of 7.46, PCO2 21.2, PO2 of 177, bicarb of 18.9. I am intentionally hyperventilating this patient to help with his metabolic acidosis and hopefully with his cerebral edema. He has acute on chronic renal failure. His creatinine is 9.10 with a BUN of 59 his potassium has dropped from 7.1-6.6. Natruretic peptide is dropped from 879 2 398. Troponins are elevated at 7.600. Total CPK is 10,982. The patient also has severe hypoglycemia. He is not a diabetic. This is been corrected and glucose of 128 this morning. He also had platelets as low as 35,000 and these have improved to 53,000. H&H is stable at 12.3/39.5 and white count is 12,186 segs 8.5 lymphs. This patient is on ventilator weaning and physical therapy protocols. He has improved a little bit but he is still in critical condition. Microbiology. No positive culture Physical exam. Vital signs. See below. Neurologic. Reportedly he will occasionally open his eyes. Face. Symmetrical. No swelling of the lips or tongue. Neck. No meningismus Chest. Slight loose large airway congestion Heart. Far lateral PMI Abdomen. Nondistended. Only a rare bowel sounds heard Lower extremities. Overlying skin changes of chronic venous stasis. The remainder the physical exam is negative. Plan. 02/14/2017 1. Blood culture 2. Sputum for Gram stain culture and sensitivity 3. Legionella titer 4. Cold agglutinins 5. Daily chest x-rays and ABGs 6. Mechanical ventilation weaning protocol 7. Physical therapy protocol while on mechanical ventilation. 8. Doppler venograms of the lower extremities. 9. Proton pump inhibitor protocol 10. Deep venous thrombophlebitis prevention protocol. 11. Decadron 8 mg IV push every 8 hours. I will use this to help with prevention of large as well as possibly central nervous system effect. 12. Medicines been reviewed and multiple medicines have been held. See orders 13. See orders. 02/15/2017 1. Continue alveolar hyperventilation in the face of metabolic acidosis and central nervous system injury 2. Daily chest x-ray, ABGs, lab 3. Continue Decadron 4. Continue antibiotics and check cultures. 5. Mechanical ventilator weaning protocol 6. Mechanical ventilator physical therapy protocol 7. Proton pump inhibitor protocol twice daily 8. Deep venous thrombophlebitis prevention protocol. Exam (Progress Note) - Constitutional Vitals: Period Temp Pulse Resp BP Sys/[place] Pulse Ox Last 24 Hr 97.2 F-98.5 F 83-95 34-40 85-106/46-67 92-100 Results - Labs CBC & BMP: 02/15/17 02:00 02/15/17 02:00
--- NOTE | 2017-02-15 07:38 | XRay Report ---
XR chest 1V portable Indication: Mechanical ventilation Comparison: Chest x-ray 03/04/2017 Technique: Portable AP chest was performed. Findings: Multiple tubes and medical support devices appear stable. Heart size is stable. The lung bases demonstrate some increase in parenchymal opacity partially obscuring each hemidiaphragm. Airspace disease is more pronounced within the right cardiophrenic angle. Small amount of dependent pleural fluid suggested bilaterally. Upper lungs are clear. Impression: 1. Given the difference in inspiration, lung bases suggests worsening infection, edema, or atelectasis. There is some asymmetry and more prominence of airspace disease within the right infrahilar lung and right cardiophrenic angle. 02/15/2017 7:35 AM PROCEDURE INTERPRETED AT [facility] DEPARTMENT OF RADIOLOGY Final Report Signed by: Dr. Donald Baker
--- NOTE | 2017-02-15 08:18 | Nephrology Progress Note ---
Nephrology - PN: Subj Interval history: Mr. Muñoz is seen regarding his acute renal failure following a cardiopulmonary arrest. He made about 100 cc of urine yesterday and has a blood pressure of 90 on significant vasopressors. He still has problems with hyperkalemia as expected. Neurologically he has only roving eye movements no purposeful movements and has no response to deep noxious stimuli. CT scan of his brain does not demonstrate any intracerebral injury at this point. Overall his outlook is ominous and I do not think he would benefit from or tolerate an attempted hemodialysis. 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 We spoke with family yesterday about his poor outlook and will talk with him again today. Exam (PN)-Nephrology - Vital Signs Vital signs: Period Temp Pulse Resp BP Sys/Connell Pulse Ox Last 24 Hr 97.2 F-98.5 F 83-95 34-40 87-106/47-67 92-100 - Lab 02/15/17 02:00 02/15/17 02:00 Most recent lab results ABG pH 7.462 (7.35-7.45) H 02/15/17 02:00 ABG pCO2 21.2 MM HG (35-48) L 02/15/17 02:00 ABG pO2 177.0 MM HG (80-95) H 02/15/17 02:00 ABG HCO3 18.9 MMOL/L (20-26) L 02/15/17 02:00 ABG O2 Saturation 99.2 % (95-100) 02/15/17 02:00 Calcium 6.2 MG/DL (8.5-10.1) L 02/15/17 02:00 Magnesium 2.4 MG/DL (1.8-2.4) 02/14/17 15:20
[2017-02-15] MEDS: NOREPINEPHRINE 16 MG in SODIUM CHLORIDE 0.9% 234 ML IV SCH ×2 (08:31→19:40)
[2017-02-15] MEDS: LEVOTHYROXINE 100 MCG TABLET PO SCH (08:46)
[2017-02-15] MEDS: MAGNESIUM OXIDE 400 MG TABLET PO SCH (08:46)
[2017-02-15] MEDS: PANTOPRAZOLE 40 MG VIAL IV SCH ×2 (08:46→21:07)
--- NOTE | 2017-02-15 08:54 | Cardiology Progress Note ---
Assessment and Plan (1) Elevated troponin Status: Acute Assessment and plan: SEE PLAN OF CARE LISTED BELOW Current Visit: Yes (2) Altered mental status Status: Acute Assessment and plan: SEE PLAN OF CARE LISTED BELOW Current Visit: Yes (3) Hypoglycemia Status: Resolved Assessment and plan: SEE PLAN OF CARE LISTED BELOW Current Visit: Yes (4) Respiratory failure Status: Acute Assessment and plan: SEE PLAN OF CARE LISTED BELOW Current Visit: Yes (5) Acute renal failure Status: Acute Assessment and plan: SEE PLAN OF CARE LISTED BELOW Current Visit: Yes (6) Hemoptysis Status: Acute Assessment and plan: SEE PLAN OF CARE LISTED BELOW Current Visit: Yes (7) Cardiomyopathy Status: Acute Assessment and plan: SEE PLAN OF CARE LISTED BELOW Current Visit: Yes Qualifiers: Cardiomyopathy type: unspecified Qualified Code(s): I42.9 - Cardiomyopathy , unspecified (8) Cardiopulmonary arrest with successful resuscitation Status: Acute Assessment and plan: SEE PLAN OF CARE LISTED BELOW Current Visit: Yes (9) Congestive heart failure Status: Acute Current Visit: Yes Qualifiers: Congestive heart failure type: systolic (10) Myeloma Status: Chronic Assessment and plan: SEE PLAN OF CARE LISTED BELOW Current Visit: Yes (11) Thrombocytopenia Status: Acute Assessment and plan: SEE PLAN OF CARE LISTED BELOW Current Visit: Yes (12) Hyperkalemia Status: Acute Assessment and plan: SEE PLAN OF CARE LISTED BELOW Current Visit: Yes Cardiology - PN: Subj Interval history: Rotogravure Press Operator: None Oncologist: Dr. Lauren SUMMARY - Mr. Muñoz is a 61 year old male without a prior cardiac history, with risk factors significant for hypertension. He has a history of multiple myeloma which is followed by Dr. Lauren. He was admitted to the hospital with progressive dyspnea, orthopnea, and some mild hemoptysis. He had an approximate 2-3 week prodrome of heart failure symptoms. Echocardiogram was performed which demonstrated an ejection fraction of 15%. He is also had some thrombocytopenia and chronic renal insufficiency. Wednesday, he was very tachypneic, mildly hypoxic, and developed some cardiopulmonary arrest from which she was resuscitated. He has been intubated and supported with pressors. February 15, 2017 UPDATE : Patient remains sedated and ventilated in the CCU. Currently, requiring vasopressors. Blood pressure stable with systolic blood pressure ranging from 90-105. Currently requiring dobutamine as well as Levophed. Per nursing staff, sedation has been held since Wednesday and patient has not awoken and will not follow commands. He underwent head CT this morning which revealed no evidence of acute intracranial pathology. Urine output has picked up slightly. Nephrology is following. Creatinine has simon this morning to 9.1. Potassium is slightly low at this morning at 6.6. No ectopy noted per home appliance technician. I will discuss with Dr. Jackson and await his additional recommendations. ASSESSMENT AND PLAN : 1. CONGESTIVE HEART FAILURE - This appears to be at least a subacute presentation, there is no prior documentation of cardiomyopathy. Secondary to systolic dysfunction and renal insufficiency, EF 15%. Curiously his BNP is relatively low despite his severe renal failure. Unfortunately, his blood pressure will not allow any FRANCINE inhibitor, ARB or beta-blockade. He has not tolerated aggressive diuresis. At this point, we will continue with IV dobutamine and initiate ARB, FRANCINE inhibitor and/or beta- blockade once his blood pressure/kidney function will allow. Patient will need heart catheterization when his comorbidities improve. I will discuss with Dr. Jackson and await his additional recommendations. 2. ELEVATED TROPONIN - Troponin yesterday 7.6. Patient is status post cardiopulmonary arrest Wednesday evening. At this point, patient is a poor candidate for invasive cardiac workup due to his severe thrombocytopenia as well as his acute renal failure. Patient will benefit from heart catheterization once his comorbidities improve. 3. HEMOPTYSIS - Significance of this is unclear. 4. MULTIPLE MYELOMA - Reportedly stable 5. ACUTE RENAL FAILURE ON CHRONIC RENAL INSUFFCIENCY - This is likely the result of his hypotension and cardiopulmonary arrest Wednesday, with worsening aggravation from his low cardiac output. Hyperkalemia improved overnight. Potassium 6.6 today. Creatinine 9.1 today. Nephrology is following and will follow their recommendations. 6. THROMBOCYTOPENIA - Chronicity unknown. Improved overnight from 35 to 53 this morning. This has precluded any invasive cardiac workup. 7. RESPIRATORY FAILURE - Pulmonary edema is likely contributing to this. He is also being treated for any infectious process. Relatively low BNP given his other clinical picture suggests that this may be multifactorial respiratory failure. 8. HYPOGLYCEMIA - Resolved. Likely related to his multiorgan failure. 9. HYPERKALEMIA - Improved overnight from 7.1 to 6.6 today. Management per nephrology. 10.ALTERED MENTAL STATUS - Head CT this morning revealed no evidence of acute intracranial pathology. Possible anoxic encephalopathy. Consider neurology consult. 11.CARDIOMYOPATHY - This appears to be a new diagnosis. Secondary to systolic dysfunction and renal insufficiency, EF 15%. Unfortunately, his blood pressure will not allow any FRANCINE inhibitor, ARB or beta-blockade. He has not tolerated aggressive diuresis. At this point, we will continue with IV dobutamine and initiate ARB, FRANCINE inhibitor and/or beta-blockade once his blood pressure/kidney function will allow. Patient will need heart catheterization when his comorbidities improve. I will discuss with Dr. Jackson and await his additional recommendations. Exam (Progress Note) - Constitutional Vitals: Period Temp Pulse Resp BP Sys/Connell Pulse Ox Last 24 Hr 97.2 F-98.5 F 83-95 34-40 87-106/47-67 92-100 Exam: \ General appearance: normal weight, no acute distress, intubated, not spontaneously arousable during the exam. Head exam: Present: normocephalic, atraumatic,. Absent: hematoma, laceration ENT exam: Present: normal exam, normal external ear exam Neck exam: Present: It is difficult to assess for JVD. Absent: lymphadenopathy , meningismus, tenderness, thyromegaly Respiratory exam: Present: Coarse ventilator breath sounds auscultated. There is normal rise with ventilated breaths. Cardiovascular exam: Present: regular rate and rhythm. Absent: carotid bruit, gallop, JVD, rubs GI/Abdominal exam: Present: Hypoactive bowel sounds. Absent: firm, guarding, hernia, mass, tenderness, rebound, soft Extremities exam: Present: 1+ bilateral lower extremity edema. The right groin is without evidence of hematoma surrounding the right arterial line and central venous line. Back exam: Unable to assess due to patient being on the ventilator Neurological exam: Unable to fully assess due to patient being on the ventilator. Psychiatric exam: Unable to assess due to patient being on the ventilator. Skin exam: Present: normal color, warm, dry, intact. Absent: cyanosis, diaphoretic, rash, urticaria Result/EKG - Labs CBC & BMP: 02/15/17 02:00 02/15/17 02:00 Labs: Laboratory Results - last 24 hr 02/14/17 02/14/17 02/14/17 08:44 10:49 11:28 WBC RBC Hgb Hct MCV MCH MCHC RDW Plt Count Neut % (Auto) Lymph % (Auto) [place] % (Auto) Eos % (Auto) Baso % (Auto) Neut # (Auto) Lymph # (Auto) [place] # (Auto) Eos # (Auto) Baso # (Auto) Total Counted Immature Gran % Nucleated RBC % Immature Gran # Segmented Neutrophils Band Neutrophils Lymphocytes Monocytes Eosinophils Nucleated RBCs # Platelet Estimate Hypochromasia Ovalocytes ABG pH ABG pCO2 ABG pO2 ABG HCO3 ABG Total CO2 ABG O2 Saturation ABG Base Excess Sodium Potassium Chloride Carbon Dioxide Anion Gap BUN Creatinine GFR Calculation BUN/Creatinine Ratio Glucose POC Glucose 61 L 131 H Calculated Osmolality Lactic Acid Calcium Magnesium Total Creatine Kinase CK-MB (CK-2) CK and CKMB Interp Troponin I Urine Color Dark yellow Urine Appearance Cloudy Urine pH 5.0 Ur Specific [place] 1.011 Urine Protein 100 Urine Glucose (UA) 50 Urine Ketones Negative Urine Blood Large Urine Nitrate Negative Urine Bilirubin Negative Urine Urobilinogen < 2.0 H Urine Leukocytes Negative Urine RBC 695 Ur Culture Indicated? Not indicated Cold Agglutinin Screen 02/14/17 02/14/17 02/14/17 12:04 12:04 12:04 WBC RBC Hgb Hct MCV MCH MCHC RDW Plt Count Neut % (Auto) Lymph % (Auto) [place] % (Auto) Eos % (Auto) Baso % (Auto) Neut # (Auto) Lymph # (Auto) [place] # (Auto) Eos # (Auto) Baso # (Auto) Total Counted Immature Gran % Nucleated RBC % Immature Gran # Segmented Neutrophils Band Neutrophils Lymphocytes Monocytes Eosinophils Nucleated RBCs # Platelet Estimate Hypochromasia Ovalocytes ABG pH ABG pCO2 ABG pO2 ABG HCO3 ABG Total CO2 ABG O2 Saturation ABG Base Excess Sodium 138 Potassium 7.1 H* Chloride 101 Carbon Dioxide 16 L Anion Gap 28.1 H BUN 48 H Creatinine 7.20 H GFR Calculation 13 BUN/Creatinine Ratio 6.00 Glucose 189 H POC Glucose Calculated Osmolality 292.7 Lactic Acid 9.8 H Calcium 6.6 L Magnesium Total Creatine Kinase CK-MB (CK-2) CK and CKMB Interp Troponin I Urine Color Urine Appearance Urine pH Ur Specific [place] Urine Protein Urine Glucose (UA) Urine Ketones Urine Blood Urine Nitrate Urine Bilirubin Urine Urobilinogen Urine Leukocytes Urine RBC Ur Culture Indicated? Cold Agglutinin Screen Negative 02/14/17 02/14/17 02/15/17 15:20 18:40 02:00 WBC RBC Hgb Hct MCV MCH MCHC RDW Plt Count Neut % (Auto) Lymph % (Auto) [place] % (Auto) Eos % (Auto) Baso % (Auto) Neut # (Auto) Lymph # (Auto) [place] # (Auto) Eos # (Auto) Baso # (Auto) Total Counted Immature Gran % Nucleated RBC % Immature Gran # Segmented Neutrophils Band Neutrophils Lymphocytes Monocytes Eosinophils Nucleated RBCs # Platelet Estimate Hypochromasia Ovalocytes ABG pH ABG pCO2 ABG pO2 ABG HCO3 ABG Total CO2 ABG O2 Saturation ABG Base Excess Sodium 138 Potassium 7.5 H* Chloride 103 Carbon Dioxide 12 L Anion Gap 30.5 H BUN 53 H Creatinine 8.00 H GFR Calculation 11 BUN/Creatinine Ratio 6.00 Glucose 155 H POC Glucose Calculated Osmolality 291.7 Lactic Acid 9.7 H 9.2 H Calcium 7.1 L Magnesium 2.4 Total Creatine Kinase 99332 H D CK-MB (CK-2) 14.1 H D CK and CKMB Interp 0.1 Troponin I 7.600 H D Urine Color Urine Appearance Urine pH Ur Specific [place] Urine Protein Urine Glucose (UA) Urine Ketones Urine Blood Urine Nitrate Urine Bilirubin Urine Urobilinogen Urine Leukocytes Urine RBC Ur Culture Indicated? Cold Agglutinin Screen 02/15/17 02/15/17 02/15/17 02:00 02:00 02:00 WBC 12.1 H RBC 4.63 Hgb 12.3 L Hct 39.5 L MCV 85.3 L MCH 27 MCHC 31.1 L RDW 20.8 H Plt Count 53 L D Neut % (Auto) 86.0 H Lymph % (Auto) 8.5 L [place] % (Auto) 3.4 Eos % (Auto) 0.0 Baso % (Auto) 0.4 Neut # (Auto) 10.4 H Lymph # (Auto) 1.0 L [place] # (Auto) 0.4 Eos # (Auto) 0.0 Baso # (Auto) 0.1 Total Counted 100 Immature Gran % 1.7 Nucleated RBC % 5.0 Immature Gran # 0.21 Segmented Neutrophils 86 H Band Neutrophils 2 Lymphocytes 7 L Monocytes 4 Eosinophils 1 Nucleated RBCs # 0.60 Platelet Estimate Decreased Hypochromasia 2+ Ovalocytes 2+ ABG pH 7.462 H ABG pCO2 21.2 L ABG pO2 177.0 H ABG HCO3 18.9 L ABG Total CO2 13.3 L ABG O2 Saturation 99.2 ABG Base Excess -6.9 L Sodium 136 Potassium 6.6 H* Chloride 101 Carbon Dioxide 17 L Anion Gap 24.6 H BUN 59 H Creatinine 9.10 H GFR Calculation 10 BUN/Creatinine Ratio 6.00 Glucose 128 H POC Glucose Calculated Osmolality 290.0 Lactic Acid Calcium 6.2 L Magnesium Total Creatine Kinase CK-MB (CK-2) CK and CKMB Interp Troponin I Urine Color Urine Appearance Urine pH Ur Specific [place] Urine Protein Urine Glucose (UA) Urine Ketones Urine Blood Urine Nitrate Urine Bilirubin Urine Urobilinogen Urine Leukocytes Urine RBC Ur Culture Indicated? Cold Agglutinin Screen 02/15/17 06:35 WBC RBC Hgb Hct MCV MCH MCHC RDW Plt Count Neut % (Auto) Lymph % (Auto) [place] % (Auto) Eos % (Auto) Baso % (Auto) Neut # (Auto) Lymph # (Auto) [place] # (Auto) Eos # (Auto) Baso # (Auto) Total Counted Immature Gran % Nucleated RBC % Immature Gran # Segmented Neutrophils Band Neutrophils Lymphocytes Monocytes Eosinophils Nucleated RBCs # Platelet Estimate Hypochromasia Ovalocytes ABG pH ABG pCO2 ABG pO2 ABG HCO3 ABG Total CO2 ABG O2 Saturation ABG Base Excess Sodium Potassium Chloride Carbon Dioxide Anion Gap BUN Creatinine GFR Calculation BUN/Creatinine Ratio Glucose POC Glucose Calculated Osmolality Lactic Acid 9.3 H Calcium Magnesium Total Creatine Kinase CK-MB (CK-2) CK and CKMB Interp Troponin I Urine Color Urine Appearance Urine pH Ur Specific [place] Urine Protein Urine Glucose (UA) Urine Ketones Urine Blood Urine Nitrate Urine Bilirubin Urine Urobilinogen Urine Leukocytes Urine RBC Ur Culture Indicated? Cold Agglutinin Screen
[2017-02-15] MEDS ORDERED: LENALIDOMIDE 5 MG PO SCH ×2 (09:00)
--- NOTE | 2017-02-15 09:32 | Hospitalist Progress Note ---
Assessment and Plan (1) Respiratory failure Status: Acute Assessment and plan: Pt. currently intubated. Pulmonary following for vent management. Daily CXRs ordered. WBC 12.1. Pt to be continued on IV antibiotics. Continue to monitor. Current Visit: Yes (2) Acute renal failure Status: Acute Assessment and plan: Nephrology following pt's care. Pt's bun/creatinine worsened today to 59/9. Due to patient's poor prognosis, there will not be any plans for hemodialysis at this time. Pt. has briggs catherer in place. Strict I&Os ordered. Continue daily labs (BMP/CBC) Current Visit: Yes (3) Cardiopulmonary arrest with successful resuscitation Status: Acute Assessment and plan: s/p cardiopulmonary arrest. Current Visit: Yes (4) Congestive heart failure Status: Acute Assessment and plan: Pt. not known to have any prior cardiac history. Pt is s/p acute CT. EF noted at 15%. Cardiology following. Due to hypotension, pt is not able to tolerate zay /arb/beta danette therapy at this time. Dobutamine currently infusing. Current Visit: Yes Qualifiers: Congestive heart failure type: systolic (5) Elevated troponin Status: Acute Assessment and plan: Pt. is s/p cardiac arrest. Cardiology following. Current Visit: Yes (6) Hyperkalemia Status: Acute Assessment and plan: Pt's K is 6.6. This is a decrease from 7.1. Defer to nephrology for management. Current Visit: Yes (7) Myeloma Status: Chronic Assessment and plan: Pt. has history of multiple myeloma. Currently in remission. Oncology is seeing patient. Pt. received 1 unit of platelets on 02/14. Current Visit: Yes (8) Hypoglycemia Status: Resolved Current Visit: Yes Hospitalist: Subjective Interval history: Pt. was seen and assessed with Dr. Lake at bedside. Pt. is currently intubated without sedation. Pt is nonresponsive at this time. CT performed this am revealed no acute abnormalities. Pt is still on pressors for blood pressure. Urine output noted. Pt. is being followed by cardiology and nephrology. Labs and chart reviewed. Potassium decreased to 6.6. Bun and creatinine noted to be 59/9.1. We will continue to follow. Exam - Constitutional Vitals: Period Temp Pulse Resp BP Sys/Connell Pulse Ox Last 24 Hr 97.2 F-98.5 F 83-95 34-39 87-106/47-67 92-100 General appearance: no acute distress, over weight - Head Head exam: Present: normal inspection, normocephalic - Eye Pupils: Absent: KENNY - Neck Neck exam: Absent: thyromegaly - Respiratory Respiratory exam: Present: clear to auscultation bilaterally, accessory muscle use - Cardiovascular Cardiovascular exam: Present: regular rate and rhythm - GI/Abdominal GI/Abdominal exam: Present: normal bowel sounds, soft - Extremities Exam Extremities exam: Present: normal capillary refill. Absent: full ROM, edema - Back Exam Back exam: Present: other (unable to assess) - Neurological Exam Neurological exam: Present: motor sensory deficit, other (pt is on ventilator; unable to assess). Absent: alert - Psychiatric Psychiatric exam: Present: other (pt is on ventilator; unable to assess) - Skin Skin exam: Present: normal color, warm, dry Results - Labs CBC & BMP: 02/15/17 02:00 02/15/17 02:00 Lab Results: I have reviewed the past 24 hour labs
[2017-02-15] MEDS: DOBUTamine 500 MG/250 ML PREMIX IV SCH ×2 (14:02→23:54)
[2017-02-15] MEDS: PHENYLEPHRINE INJ 80 MG in SODIUM CHLORIDE 0.9% 242 ML IV SCH (14:48)
[2017-02-15] MEDS ORDERED: LORazepam 2 MG/1 ML VIAL ONE (16:57)
[2017-02-15] MEDS: LEVOFLOXACIN INJ 500 MG in PREMIX 1 EACH IV SCH (17:00)
[2017-02-15] MEDS: LORazepam 2 MG/1 ML VIAL IM PRN ×2 (17:03→18:06)
[2017-02-15] MEDS: ACETAMINOPHEN 325 MG TABLET PO PRN (18:17)
[2017-02-15] MEDS ORDERED: IBUPROFEN 100 MG/5 ML UDCUP PO PRN (20:06)
[2017-02-15] MEDS: LORazepam 2 MG/1 ML VIAL IV PRN (20:29)
[2017-02-15] MEDS: DEXTROSE 50% 25 GM/50 ML VIAL IV PRN (20:57)
[2017-02-16] MEDS: SODIUM ACETATE 150 MEQ in DEXTROSE 5% 925 ML IV SCH ×5 (00:52→22:43)
[2017-02-16] MEDS: DOBUTamine 500 MG/250 ML PREMIX IV SCH ×12 (01:44→23:19)
[2017-02-16] MEDS: CLINDAMYCIN INJ 300 MG in PREMIX 1 EACH IV SCH ×4 (01:47→19:33)
[2017-02-16] MEDS: ACETAMINOPHEN 325 MG TABLET PO PRN (01:56)
[2017-02-16] MEDS: LORazepam 2 MG/1 ML VIAL IV PRN ×6 (01:59→18:29)
[2017-02-16 03:50] LABS: ABG Base Excess -2.1 MMOL/L (-2.5-2.5); ABG HCO3 18.2 MMOL/L (20-26); ABG Oxygen Saturation 98.7 % (95-100); ABG PH 7.561 (7.35-7.45); ABG PO2 159.1 MM HG (80-95); ABG TCO2 18.8 MMOL/L (23-27)
[2017-02-16 03:51] LABS: Basophils % 0.1 % (0.0-0.8); Hemoglobin 11.9 GM/DL (14.0-18.0); Immature Granulocytes % 0.4 %; Immature Granulocytes Absolute 0.04 #; Lymphocytes # 1.2 10*3/uL (1.4-4.0); Lymphocytes % 12.9 % (21.2-54.2); Mean Corpuscular HGB Conc 31.3 GM/DL (32-36); Mean Corpuscular Hemoglobin 26 PG (27-34); Mean Corpuscular Volume 84.4 FL (87-102); Monocytes # 0.4 10*3/uL (0.11-0.8); Monocytes % 4.3 % (1.7-12.7); NRBC # 0.23 10*3/uL; Neutrophils # 7.5 10*3/uL (1.4-7.4); Neutrophils % 82.3 % (38.7-73.9); Red Cell Distribution Width 20.6 % (9.3-17.3); White Blood Count 9.1 T/CUMM (4-12)
[2017-02-16] MEDS: metroNIDAZOLE INJ 500 MG in PREMIX 1 EACH IV SCH ×3 (03:55→21:09)
[2017-02-16 03:57] LABS: Platelet Count 48 T/CUMM (130-400)
[2017-02-16 04:18] LABS: ABG PCO2 20.7 MM HG (35-48)
[2017-02-16 04:29] LABS: Band Neutrophils 3 % (0-10); Lymphocytes 15 % (20-55); Nucleated Red Blood Cells 5 (0-5); Segmented Neutrophils 80 % (50-85)
[2017-02-16 04:30] LABS: Hypochromasia 1+; Ovalocytes 2+; Platelet Estimate Decreased; Total Cells Counted 100
[2017-02-16] MEDS: NOREPINEPHRINE 16 MG in SODIUM CHLORIDE 0.9% 234 ML IV SCH ×4 (04:44→19:27)
[2017-02-16 05:06] LABS: Blood Urea Nitrogen 73 MG/DL (7-18); Glucose 160 MG/DL (74-106); Sodium 136 MMOL/L (136-145)
[2017-02-16 05:37] LABS: Potassium 6.1 MMOL/L (3.5-5.1)
[2017-02-16 05:41] LABS: Calcium < 5.0 MG/DL (8.5-10.1)
[2017-02-16] MEDS: DEXAMETHASONE 4 MG/1 ML VIAL IV SCH ×3 (05:56→21:10)
--- NOTE | 2017-02-16 06:53 | XRay Report ---
History is a ventilator management Comparison 02/15/2017 The heart is enlarged. ET tube tip remains at T4 There remains hazy pulmonary opacities in the lower half right chest and mildly more confluent opacity in the retrocardiac left base. Small underlying effusions remain There has been no significant interval change Impression: No significant change described above PROCEDURE INTERPRETED AT [facility] DEPARTMENT OF RADIOLOGY Final Report Signed by: Dr. Trini Dean
--- NOTE | 2017-02-16 08:04 | Pulmonology Progress Note ---
Pulmonary - PN: Subj Interval history: This 61-year-old man had cardiac arrest and is on the ventilator. He has severe cardiomyopathy with ejection fraction 20%. He has a metabolic acidosis. History of multiple myeloma. He is on a cooling blanket. Chest x-ray showed a right lower lobe greater than left lower lobe infiltrate that may be pneumonia or congestive heart failure. He is being hyperventilated and has a pH of 7.56. Will reduce ventilator settings. Exam (Progress Note) - Constitutional Vitals: Period Temp Pulse Resp BP Sys/Connell Pulse Ox Last 24 Hr 99.2 F-104.2 F 77-96 10-50 76-108/45-65 88-100 Exam: Patient is totally unresponsive. Eyes turn side to side spontaneously. Pupils were sluggish. Vital signs normal except systolic pressure of 90. Orotracheal tube in place. Neck supple. Chest reveals some rales in the bases. Heart rapid rate without murmur. Abdomen soft no masses. Extremities no clubbing or cyanosis trace of edema. Results - Labs CBC & BMP: 02/16/17 03:45 02/16/17 03:45 Lab Results: I have reviewed the past 24 hour labs - Diagnostic Findings Procedure: Chest x-ray: image reviewed by me (Cardiomegaly. Small pleural effusions bilaterally. Bibasilar infiltrates consistent with heart failure.) Assessment and Plan (1) Cardiomyopathy Status: Acute Assessment and plan: Has ejection fraction of 20% with congestive heart failure. Likely ischemic Current Visit: Yes Qualifiers: Cardiomyopathy type: unspecified Qualified Code(s): I42.9 - Cardiomyopathy , unspecified (2) Cardiopulmonary arrest with successful resuscitation Status: Acute Assessment and plan: Has apparent brain injury. Brain CT was okay but there are changes over the skull consistent with myeloma. Current Visit: Yes (3) Metabolic acidemia Status: Acute Assessment and plan: Acidosis is a little better. Bicarb level of 20. Will reduce minute ventilation Current Visit: Yes (4) Respiratory failure Status: Acute Assessment and plan: Continuing ventilatory support. Mental status will tell us if and when we can work on weaning. Current Visit: Yes (5) Acute renal failure Status: Acute Assessment and plan: Creatinine is up to 12. Dr. Mondragon is following for renal. No plans for dialysis at present. We will do a decision as far as his CODE STATUS going forward. Current Visit: Yes
[2017-02-16] MEDS: MAGNESIUM OXIDE 400 MG TABLET PO SCH (08:41)
[2017-02-16] MEDS: PANTOPRAZOLE 40 MG VIAL IV SCH ×2 (08:41→21:09)
[2017-02-16] MEDS: LEVOTHYROXINE 100 MCG TABLET PO SCH (09:12)
--- NOTE | 2017-02-16 09:33 | Cardiology Progress Note ---
Assessment and Plan (1) Hemoptysis Status: Acute Current Visit: Yes (2) Cardiomyopathy Status: Acute Assessment and plan: 61-year-old black male, who was admitted with CHF exacerbation, acute kidney injury on CKD, respiratory insufficiency. He developed a hypoxic/bradycardic cardiopulmonary arrest and was resuscitated. Worsened acute kidney injury, hyperkalemia, severe CHF, cardiogenic shock, on 2 pressors, very poor neurological recovery so far. Fever, now on cooling blanket. -Continue inotropic suppor with pressors. Keep MAP above 65. -Severe acute kidney injury, incr K and he is not a candidate for dialysis per renal. -Very poor neurological function post code -If he recovers, will need cardiac evaluation for etiology of recently diagnosed cardiomyopathy. Multiple myeloma, MEENA on CKD, thrombocytopenia, shock limits options for invasive evaluation. There was no STEMI. Cardiac biomarkers suggest acute injury, this could be related to the code. -He had hemoptysis. Still thrombocytopenic. If no recurrence, may start aspirin and LMWH DVT prophylaxis, if plt count improves. Current Visit: Yes Qualifiers: Cardiomyopathy type: unspecified Qualified Code(s): I42.9 - Cardiomyopathy , unspecified (3) Congestive heart failure Status: Acute Current Visit: Yes Qualifiers: Congestive heart failure type: systolic (4) Cardiopulmonary arrest with successful resuscitation Status: Acute Current Visit: Yes (5) Renal insufficiency Status: Acute Current Visit: Yes (6) Thrombocytopenia Status: Acute Current Visit: Yes (7) Metabolic acidemia Status: Acute Current Visit: Yes (8) Altered mental status Status: Acute Current Visit: Yes Cardiology - PN: Subj Interval history: He is borderline blood pressure, on 2 pressors. Fever up to 104. Now cooling blanket. Unresponsive. Exam (Progress Note) - Constitutional Vitals: Period Temp Pulse Resp BP Sys/Connell Pulse Ox Last 24 Hr 99.2 F-104.2 F 77-96 10-50 76-108/45-65 88-100 General appearance: no acute distress, over weight - Head Head exam: Present: normal inspection - Eye Eye exam: Absent: periorbital swelling, laceration to eyelids - ENT ENT exam: Present: normal external ear exam - Neck Neck exam: Present: normal inspection - Respiratory Respiratory exam: Present: clear to auscultation bilaterally. Absent: prolonged expiratory phase - Cardiovascular Cardiovascular exam: Present: regular rate and rhythm, systolic murmur - GI/Abdominal GI/Abdominal exam: Present: hypoactive bowel sounds - Extremities Exam Extremities exam: Present: normal inspection, normal capillary refill. Absent: edema - Neurological Exam Neurological exam: Present: altered (unresponsive) - Skin Skin exam: Present: normal color. Absent: cyanosis Result/EKG - Labs CBC & BMP: 02/16/17 03:45 02/16/17 03:45 Lab Results: I have reviewed the past 24 hour labs Labs: Laboratory Results - last 24 hr 02/14/17 02/14/17 02/14/17 16:21 20:56 23:23 WBC RBC Hgb Hct MCV MCH MCHC RDW Plt Count Neut % (Auto) Lymph % (Auto) [place] % (Auto) Eos % (Auto) Baso % (Auto) Neut # (Auto) Lymph # (Auto) [place] # (Auto) Eos # (Auto) Baso # (Auto) Total Counted Immature Gran % Nucleated RBC % Immature Gran # Segmented Neutrophils Band Neutrophils Lymphocytes Monocytes Nucleated RBCs Nucleated RBCs # Platelet Estimate Hypochromasia Ovalocytes ABG pH ABG pCO2 ABG pO2 ABG HCO3 ABG Total CO2 ABG O2 Saturation ABG Base Excess Sodium Potassium Chloride Carbon Dioxide Anion Gap BUN Creatinine GFR Calculation BUN/Creatinine Ratio Glucose POC Glucose 74 112 H 95 Calculated Osmolality Calcium Magnesium 02/15/17 02/15/17 02/15/17 04:19 04:22 04:46 WBC RBC Hgb Hct MCV MCH MCHC RDW Plt Count Neut % (Auto) Lymph % (Auto) [place] % (Auto) Eos % (Auto) Baso % (Auto) Neut # (Auto) Lymph # (Auto) [place] # (Auto) Eos # (Auto) Baso # (Auto) Total Counted Immature Gran % Nucleated RBC % Immature Gran # Segmented Neutrophils Band Neutrophils Lymphocytes Monocytes Nucleated RBCs Nucleated RBCs # Platelet Estimate Hypochromasia Ovalocytes ABG pH ABG pCO2 ABG pO2 ABG HCO3 ABG Total CO2 ABG O2 Saturation ABG Base Excess Sodium Potassium Chloride Carbon Dioxide Anion Gap BUN Creatinine GFR Calculation BUN/Creatinine Ratio Glucose POC Glucose 51 L 62 L 125 H Calculated Osmolality Calcium Magnesium 02/15/17 02/15/17 02/15/17 07:20 11:44 17:43 WBC RBC Hgb Hct MCV MCH MCHC RDW Plt Count Neut % (Auto) Lymph % (Auto) [place] % (Auto) Eos % (Auto) Baso % (Auto) Neut # (Auto) Lymph # (Auto) [place] # (Auto) Eos # (Auto) Baso # (Auto) Total Counted Immature Gran % Nucleated RBC % Immature Gran # Segmented Neutrophils Band Neutrophils Lymphocytes Monocytes Nucleated RBCs Nucleated RBCs # Platelet Estimate Hypochromasia Ovalocytes ABG pH ABG pCO2 ABG pO2 ABG HCO3 ABG Total CO2 ABG O2 Saturation ABG Base Excess Sodium Potassium Chloride Carbon Dioxide Anion Gap BUN Creatinine GFR Calculation BUN/Creatinine Ratio Glucose POC Glucose 105 89 72 L Calculated Osmolality Calcium Magnesium 02/15/17 02/15/17 02/16/17 20:54 23:44 03:45 WBC RBC Hgb Hct MCV MCH MCHC RDW Plt Count Neut % (Auto) Lymph % (Auto) [place] % (Auto) Eos % (Auto) Baso % (Auto) Neut # (Auto) Lymph # (Auto) [place] # (Auto) Eos # (Auto) Baso # (Auto) Total Counted Immature Gran % Nucleated RBC % Immature Gran # Segmented Neutrophils Band Neutrophils Lymphocytes Monocytes Nucleated RBCs Nucleated RBCs # Platelet Estimate Hypochromasia Ovalocytes ABG pH ABG pCO2 ABG pO2 ABG HCO3 ABG Total CO2 ABG O2 Saturation ABG Base Excess Sodium 136 Potassium 6.1 H* Chloride 95 L Carbon Dioxide 20 L Anion Gap 27.1 H BUN 73 H Creatinine 12.40 H GFR Calculation 7 BUN/Creatinine Ratio 5.00 L Glucose 160 H POC Glucose 78 118 H Calculated Osmolality 296.0 Calcium < 5.0 L* Magnesium 2.0 02/16/17 02/16/17 02/16/17 03:45 03:45 04:16 WBC 9.1 RBC 4.50 Hgb 11.9 L Hct 38.0 L MCV 84.4 L MCH 26 L MCHC 31.3 L RDW 20.6 H Plt Count 48 L Neut % (Auto) 82.3 H Lymph % (Auto) 12.9 L [place] % (Auto) 4.3 Eos % (Auto) 0.0 Baso % (Auto) 0.1 Neut # (Auto) 7.5 H Lymph # (Auto) 1.2 L [place] # (Auto) 0.4 Eos # (Auto) 0.0 Baso # (Auto) 0.0 Total Counted 100 Immature Gran % 0.4 Nucleated RBC % 2.5 Immature Gran # 0.04 Segmented Neutrophils 80 Band Neutrophils 3 Lymphocytes 15 L Monocytes 2 Nucleated RBCs 5 Nucleated RBCs # 0.23 Platelet Estimate Decreased Hypochromasia 1+ Ovalocytes 2+ ABG pH 7.561 H ABG pCO2 20.7 L* ABG pO2 159.1 H ABG HCO3 18.2 L ABG Total CO2 18.8 L ABG O2 Saturation 98.7 ABG Base Excess -2.1 Sodium Potassium Chloride Carbon Dioxide Anion Gap BUN Creatinine GFR Calculation BUN/Creatinine Ratio Glucose POC Glucose 117 H Calculated Osmolality Calcium Magnesium - EKG EKG results: interpreted by me
[2017-02-16 09:55] LABS: ABG Base Excess -0.4 MMOL/L (-2.5-2.5); ABG HCO3 22.8 MMOL/L (20-26); ABG Oxygen Saturation 93.3 % (95-100); ABG PH 7.458 (7.35-7.45); ABG TCO2 23.9 MMOL/L (23-27)
[2017-02-16] MEDS: PHENYLEPHRINE INJ 80 MG in SODIUM CHLORIDE 0.9% 242 ML IV SCH ×2 (10:10→15:03)
--- NOTE | 2017-02-16 10:14 | Nephrology Progress Note ---
Nephrology - PN: Subj Interval history: Patient remains intubated and sedate. Physical exam general the patient chronically ill-appearing, heart is regular rate and rhythm, he has no pitting edema, lungs are clear to auscultation anteriorly except for some occasional upper airway noises, abdomen is soft with occasional bowel sounds, neuro-patient has no response to verbal or pain stimuli , he does occasionally twitch in his right hand Assessment/plan 1. Acute renal failure-patient's creatinine is up to 12, his urine output increased around 710 cc over 24 hours yesterday, his potassium is come down to 6.1 2. Hyperkalemia-we will check to see if he got another dose of Kayexalate since this was drawn, if it decreased spontaneously we could probably get by without another dose of Kayexalate 3. Anoxic brain injury status post cardiac arrest 4. Metabolic acidosis we will continue sodium acetate in his IV fluids, his pH by ABG was 7.4 Exam (PN)-Nephrology - Vital Signs Vital signs: Period Temp Pulse Resp BP Sys/Connell Pulse Ox Last 24 Hr 99.2 F-104.2 F 77-96 10-50 76-108/45-65 88-100 - Lab 02/16/17 03:45 02/16/17 03:45 Most recent lab results ABG pH 7.458 (7.35-7.45) H 02/16/17 09:47 ABG pCO2 33.0 MM HG (35-48) L 02/16/17 09:47 ABG pO2 78.0 MM HG (80-95) L 02/16/17 09:47 ABG HCO3 22.8 MMOL/L (20-26) 02/16/17 09:47 ABG O2 Saturation 93.3 % (95-100) L 02/16/17 09:47 Calcium < 5.0 MG/DL (8.5-10.1) L* 02/16/17 03:45 Magnesium 2.0 MG/DL (1.8-2.4) 02/16/17 03:45
--- NOTE | 2017-02-16 10:56 | Hospitalist Progress Note ---
Assessment and Plan (1) Respiratory failure Status: Acute Assessment and plan: Pt. currently intubated. Pulmonary following for vent management. Daily CXRs ordered. WBC 12.1. Pt to be continued on IV antibiotics. Continue to monitor. Current Visit: Yes (2) Acute renal failure Status: Acute Assessment and plan: Nephrology following pt's care. Pt's bun/creatinine worsened today to 59/9. Due to patient's poor prognosis, there will not be any plans for hemodialysis at this time. Pt. has briggs catherer in place. Strict I&Os ordered. Continue daily labs (BMP/CBC) 02/16 Nephrology following. Bun/creatinine 73/12.4 today. Prognosis is poor. Current Visit: Yes (3) Cardiopulmonary arrest with successful resuscitation Status: Acute Assessment and plan: s/p cardiopulmonary arrest. Current Visit: Yes (4) Congestive heart failure Status: Acute Assessment and plan: Pt. not known to have any prior cardiac history. Pt is s/p acute CO. EF noted at 15%. Cardiology following. Due to hypotension, pt is not able to tolerate zay /arb/beta danette therapy at this time. Dobutamine currently infusing. 02/16 Cardiology following. Dobutamine has been discontinued. Current Visit: Yes Qualifiers: Congestive heart failure type: systolic (5) Elevated troponin Status: Acute Assessment and plan: Pt. is s/p cardiac arrest. Cardiology following. Current Visit: Yes (6) Hyperkalemia Status: Acute Assessment and plan: Pt's K is 6.6. This is a decrease from 7.1. Defer to nephrology for management. 02/16 K is 6.1 Current Visit: Yes (7) Myeloma Status: Chronic Assessment and plan: Pt. has history of multiple myeloma. Currently in remission. Oncology is seeing patient. Pt. received 1 unit of platelets on 02/14. Current Visit: Yes (8) Hypoglycemia Status: Resolved Current Visit: Yes Hospitalist: Subjective Interval history: Pt. was seen and examined this morning with Dr. Lake and RN present. Lab and chart reviewed. Mr. Muñoz is critically ill. He is completely unresponsive at this time. Pt. remains intubated. Pt. being followed by multiple services. There was reported seizure like activity yesterday and he was started on Keppra and ativan. Fever noted last night and cooling blanket was added. Pt's condition was discussed with and child at bedside. Exam - Constitutional Vitals: Period Temp Pulse Resp BP Sys/Connell Pulse Ox Last 24 Hr 99.2 F-104.2 F 77-96 10-50 76-108/45-65 88-100 General appearance: no acute distress - Head Head exam: Present: normal inspection, normocephalic - Eye Eye exam: Present: other (pt's pupils turn from side to side.). Absent: periorbital swelling - Respiratory Respiratory exam: Present: other (coarse) - Cardiovascular Cardiovascular exam: Present: regular rate and rhythm - GI/Abdominal GI/Abdominal exam: Present: normal bowel sounds, soft - Extremities Exam Extremities exam: Present: normal capillary refill. Absent: edema - Neurological Exam Neurological exam: Present: altered, other (pt intubated) - Psychiatric Psychiatric exam: Present: other (pt intubated ) - Skin Skin exam: Present: normal color Results - Labs CBC & BMP: 02/16/17 03:45 02/16/17 03:45 Lab Results: I have reviewed the past 24 hour labs
[2017-02-16] MEDS ORDERED: PHENYLEPHRINE IV SCH (20:00)
[2017-02-16] MEDS ORDERED: SODIUM CHLORIDE 0.9% IV SCH (20:00)
[2017-02-16] MEDS ORDERED: NOREPINEPHRINE 32 MG in SODIUM CHLORIDE 0.9% 468 ML IV SCH (20:00)
[2017-02-16] MEDS: DOPamine 800 MG/250 ML PREMIX IV SCH (23:18)
[2017-02-17] MEDS: DOBUTamine 500 MG/250 ML PREMIX IV SCH ×7 (01:27→17:29)
[2017-02-17] MEDS: NOREPINEPHRINE 16 MG in SODIUM CHLORIDE 0.9% 234 ML IV SCH ×2 (01:38→10:03)
[2017-02-17] MEDS: CLINDAMYCIN INJ 300 MG in PREMIX 1 EACH IV SCH ×2 (02:45→10:21)
[2017-02-17] MEDS: PHENYLEPHRINE INJ 160 MG in SODIUM CHLORIDE 0.9% 234 ML IV SCH ×3 (03:44→12:58)
[2017-02-17] MEDS: metroNIDAZOLE INJ 500 MG in PREMIX 1 EACH IV SCH ×2 (03:55→11:32)
[2017-02-17] MEDS: DEXAMETHASONE 4 MG/1 ML VIAL IV SCH (05:41)
[2017-02-17 06:20] LABS: Basophils % 0.2 % (0.0-0.8); Hematocrit 37.1 VOL% (42.0-52.0); Hemoglobin 11.7 GM/DL (14.0-18.0); Immature Granulocytes % 0.7 %; Immature Granulocytes Absolute 0.07 #; Lymphocytes # 0.8 10*3/uL (1.4-4.0); Lymphocytes % 8.1 % (21.2-54.2); Mean Corpuscular HGB Conc 31.5 GM/DL (32-36); Mean Corpuscular Hemoglobin 26 PG (27-34); Mean Corpuscular Volume 83.6 FL (87-102); Monocytes % 9.3 % (1.7-12.7); NRBC # 0.19 10*3/uL; Neutrophils # 8.4 10*3/uL (1.4-7.4); Neutrophils % 81.7 % (38.7-73.9); Platelet Count 47 T/CUMM (130-400); Red Blood Count 4.44 MC/CUMM (3.8-5.5); Red Cell Distribution Width 21.2 % (9.3-17.3); White Blood Count 10.3 T/CUMM (4-12)
[2017-02-17 06:42] LABS: Band Neutrophils 1 % (0-10); Hypochromasia 1+; Lymphocytes 5 % (20-55); Microcytosis 1+; Nucleated Red Blood Cells 4 (0-5); Ovalocytes Slight; Segmented Neutrophils 86 % (50-85); Total Cells Counted 100
[2017-02-17 06:43] LABS: Burr Cells Slight; Platelet Estimate Decreased
--- NOTE | 2017-02-17 06:43 | XRay Report ---
XR chest 1V portable Indication: Mechanical ventilation. Comparison: Chest x-ray 02/16/2017 Technique: Portable AP chest was performed. Findings: Moderate cardiomegaly is stable. Airspace opacification right cardiophrenic angle and additional opacity left cardiophrenic angle suggests little interval change. Upper lungs are grossly clear. Multiple tubes and medical support devices appear stable. Chest otherwise demonstrates no change. Impression: 1. Little interval change in the chest is suggested. 02/17/2017 6:40 AM PROCEDURE INTERPRETED AT [facility] Final Report Signed by: Dr. Donald Baker
[2017-02-17 07:31] LABS: Blood Urea Nitrogen 79 MG/DL (7-18); Glucose 215 MG/DL (74-106); Magnesium 2.2 MG/DL (1.8-2.4); Osmolality,Calculated 289.8 MOS/KG (273-304); Sodium 130 MMOL/L (136-145)
[2017-02-17 07:36] LABS: Calcium < 5.0 MG/DL (8.5-10.1); Potassium 6.3 MMOL/L (3.5-5.1)
--- NOTE | 2017-02-17 08:15 | Nephrology Progress Note ---
Nephrology - PN: Subj Interval history: Mr. Muñoz is seen in follow-up of his acute renal failure following cardiac arrest and his cardiomyopathy with markedly decreased ejection fraction. He remains with a significant WARDSPERSON injury. He is completely unresponsive to deep stimulation on my exam. Pupils are mid position or larger and do not react. He does have roving eye movements that are more rapid than before. He is making about approximately 800 cc of urine daily but BUN and creatinine continue to rise as expected. He is more and more hypotensive with blood pressures of approximately 55 systolic despite maximal vasopressors. His outlook is ominous and I agree with the continuing support but he will not benefit from any attempted dialysis and would not tolerate it. Exam (PN)-Nephrology - Vital Signs Vital signs: Period Temp Pulse Resp BP Sys/Connell Pulse Ox Last 24 Hr 97.1 F-99.3 F 73-84 9-37 54-89/33-55 85-100 - Lab 02/17/17 06:05 02/17/17 06:05 Most recent lab results ABG pH 7.458 (7.35-7.45) H 02/16/17 09:47 ABG pCO2 33.0 MM HG (35-48) L 02/16/17 09:47 ABG pO2 78.0 MM HG (80-95) L 02/16/17 09:47 ABG HCO3 22.8 MMOL/L (20-26) 02/16/17 09:47 ABG O2 Saturation 93.3 % (95-100) L 02/16/17 09:47 Calcium < 5.0 MG/DL (8.5-10.1) L* 02/17/17 06:05 Magnesium 2.2 MG/DL (1.8-2.4) 02/17/17 06:05
--- NOTE | 2017-02-17 08:37 | Cardiology Progress Note ---
Assessment and Plan - Time spent with patient Time spent with patient: Greater than 30 minutes (1) Cardiomyopathy Status: Acute Assessment and plan: SEE PLAN OF CARE LISTED BELOW Current Visit: Yes Qualifiers: Cardiomyopathy type: unspecified Qualified Code(s): I42.9 - Cardiomyopathy , unspecified (2) Congestive heart failure Status: Acute Assessment and plan: SEE PLAN OF CARE LISTED BELOW Current Visit: Yes Qualifiers: Congestive heart failure type: combined Congestive heart failure chronicity : acute Qualified Code(s): I50.41 - Acute combined systolic (congestive) and diastolic (congestive) heart failure (3) Hypoxemia Status: Acute Assessment and plan: SEE PLAN OF CARE LISTED BELOW Current Visit: Yes (4) Cardiopulmonary arrest with successful resuscitation Status: Acute Assessment and plan: SEE PLAN OF CARE LISTED BELOW Current Visit: Yes (5) Renal insufficiency Status: Acute Assessment and plan: SEE PLAN OF CARE LISTED BELOW Current Visit: Yes (6) Thrombocytopenia Status: Acute Assessment and plan: SEE PLAN OF CARE LISTED BELOW Current Visit: Yes (7) Metabolic acidemia Status: Acute Assessment and plan: SEE PLAN OF CARE LISTED BELOW Current Visit: Yes (8) Hyperkalemia Status: Acute Assessment and plan: SEE PLAN OF CARE LISTED BELOW Current Visit: Yes (9) Myeloma Status: Chronic Assessment and plan: SEE PLAN OF CARE LISTED BELOW Current Visit: Yes (10) Elevated troponin Status: Acute Assessment and plan: SEE PLAN OF CARE LISTED BELOW Current Visit: Yes (11) Altered mental status Status: Acute Assessment and plan: SEE PLAN OF CARE LISTED BELOW Current Visit: Yes Qualifiers: Altered mental status type: unspecified Qualified Code(s): R41.82 - Altered mental status, unspecified (12) Hypoglycemia Status: Resolved Assessment and plan: SEE PLAN OF CARE LISTED BELOW Current Visit: Yes (13) Respiratory failure Status: Acute Assessment and plan: SEE PLAN OF CARE LISTED BELOW Current Visit: Yes (14) Hemoptysis Status: Acute Assessment and plan: SEE PLAN OF CARE LISTED BELOW Current Visit: Yes Cardiology - PN: Subj Interval history: Job Hand: None Oncologist: Dr. Lauren SUMMARY - Mr. Muñoz is a 61 year old male without a prior cardiac history, with risk factors significant for hypertension. He has a history of multiple myeloma which is followed by Dr. Lauren. He was admitted to the hospital with progressive dyspnea, orthopnea, and some mild hemoptysis. He had an approximate 2-3 week prodrome of heart failure symptoms. Echocardiogram was performed which demonstrated an ejection fraction of 15%. He is also had some thrombocytopenia and chronic renal insufficiency. Wednesday, he was very tachypneic, mildly hypoxic, and developed some cardiopulmonary arrest from which she was resuscitated. He has been intubated and supported with pressors. FEBRUARY 15, 2017: Patient remains sedated and ventilated in the CCU. Currently, requiring vasopressors. Blood pressure stable with systolic blood pressure ranging from 90-105. Currently requiring dobutamine as well as Levophed. Per nursing staff, sedation has been held since Wednesday and patient has not awoken and will not follow commands. He underwent head CT this morning which revealed no evidence of acute intracranial pathology. Urine output has picked up slightly. Nephrology is following. Creatinine has simon this morning to 9.1. Potassium is slightly low at this morning at 6.6. No ectopy noted per bit tripoler. I will discuss with Dr. Jackson and await his additional recommendations. FEBRUARY 17, 2017: Patient is on 3 pressors, maxed out. Family wishes to keep patient full code at this time per nurse's report. However, they only want to code him once and, should he make it through the first code, then make him a DNR. He is unresponsive.. Afebrile this morning. Patient also appears to be in multiorgan system failure. Continue current plan of care. Prognosis is grim. Will further discuss with Dr. Jackson and await additional recommendations. ASSESSMENT AND PLAN : 1. CONGESTIVE HEART FAILURE - This appears to be at least a subacute presentation, there is no prior documentation of cardiomyopathy. Secondary to systolic dysfunction and diastolic dysfunction. EF 15%. NYHA Class IV. Obviously, unable to incorporate FRANCINE inhibitor or beta blockade. Avoiding Lovenox or Aspirin due to thrombocytopenia. Avoiding statins due to elevated liver enzymes. Not on nitrate due to low blood pressure. 2. ELEVATED TROPONIN - Demand ischemia. Not a candidate for invasive workup at this time due to his multiple comorbidities. 3. HEMOPTYSIS - Significance of this is unclear. 4. MULTIPLE MYELOMA -followed by oncologist. 5. ACUTE RENAL FAILURE ON CHRONIC RENAL INSUFFCIENCY - stage IV. Creatinine continues to worsen. 6. THROMBOCYTOPENIA - Chronicity unknown. 47K this morning. Avoiding Lovenox, ASA for fear for worsening. 7. RESPIRATORY FAILURE - Pulmonary edema is likely contributing to this. He is also being treated for any infectious process. 8. HYPOGLYCEMIA - Resolved. Likely related to his multiorgan failure. 9. HYPERKALEMIA - Continues and is 6.3 this morning. Continue current plan of care. 10. ALTERED MENTAL STATUS - Head CT - no evidence of acute intracranial pathology. Possible anoxic encephalopathy. 11. CARDIOMYOPATHY - This appears to be a new diagnosis. Secondary to systolic dysfunction and renal insufficiency, EF 15%. Unable to further define etiology as he is unable to undergo LHC. Exam (Progress Note) - Constitutional Vitals: Period Temp Pulse Resp BP Sys/Connell Pulse Ox Last 24 Hr 97.1 F-99.3 F 73-84 9-37 54-86/33-50 81-100 Exam: General appearance: Obese, appears critically ill. - Head Head exam: Present: Normocephalic, atraumatic. - Eye Eye exam: Conjunctiva is moist and clear. Absent: periorbital swelling, laceration to eyelids - ENT ENT exam: Present: normal external ear exam. No drainage or tenderness to movement - Neck Neck exam: Present: normal inspection, no tracheal deviation. Unable to assess for JVD due to habitus. - Respiratory Respiratory exam: Present: Rhonchi noted throughout, coarse. Symmetrical chest wall movements noted - Cardiovascular Cardiovascular exam: Present: regular rate and rhythm, II/ HSM heard best at 5ICS left. - GI/Abdominal GI/Abdominal exam: Present: hypoactive bowel sounds. Nontender to palpation. No abdominal bruit or thrill. - Extremities Exam Extremities exam: Present: normal inspection, sluggish capillary refill. Generalized edema noted, 1+. - Neurological Exam Neurological exam: Present: altered (unresponsive). No essential tremor noted - Skin Skin exam: Present: normal color. No skin breakdown appreciated. Absent: cyanosis Result/EKG Result/EKG - Labs CBC & BMP: 02/17/17 06:05 02/17/17 06:05 Lab Results: I have reviewed the past 24 hour labs Labs: Laboratory Results - last 24 hr 02/16/17 02/16/17 02/16/17 09:14 09:47 11:04 WBC RBC Hgb Hct MCV MCH MCHC RDW Plt Count Neut % (Auto) Lymph % (Auto) [place] % (Auto) Eos % (Auto) Baso % (Auto) Neut # (Auto) Lymph # (Auto) [place] # (Auto) Eos # (Auto) Baso # (Auto) Total Counted Immature Gran % Nucleated RBC % Immature Gran # Segmented Neutrophils Band Neutrophils Lymphocytes Monocytes Nucleated RBCs Nucleated RBCs # Platelet Estimate Hypochromasia Microcytosis Ovalocytes [place] Cells ABG pH 7.458 H ABG pCO2 33.0 L ABG pO2 78.0 L ABG HCO3 22.8 ABG Total CO2 23.9 ABG O2 Saturation 93.3 L ABG Base Excess -0.4 Sodium Potassium Chloride Carbon Dioxide Anion Gap BUN Creatinine GFR Calculation BUN/Creatinine Ratio Glucose POC Glucose 164 H 138 H Calculated Osmolality Calcium Magnesium 02/16/17 02/16/17 02/17/17 16:23 21:09 00:50 WBC RBC Hgb Hct MCV MCH MCHC RDW Plt Count Neut % (Auto) Lymph % (Auto) [place] % (Auto) Eos % (Auto) Baso % (Auto) Neut # (Auto) Lymph # (Auto) [place] # (Auto) Eos # (Auto) Baso # (Auto) Total Counted Immature Gran % Nucleated RBC % Immature Gran # Segmented Neutrophils Band Neutrophils Lymphocytes Monocytes Nucleated RBCs Nucleated RBCs # Platelet Estimate Hypochromasia Microcytosis Ovalocytes [place] Cells ABG pH ABG pCO2 ABG pO2 ABG HCO3 ABG Total CO2 ABG O2 Saturation ABG Base Excess Sodium Potassium Chloride Carbon Dioxide Anion Gap BUN Creatinine GFR Calculation BUN/Creatinine Ratio Glucose POC Glucose 185 H 194 H 203 H Calculated Osmolality Calcium Magnesium 02/17/17 02/17/17 02/17/17 04:08 06:05 06:05 WBC 10.3 RBC 4.44 Hgb 11.7 L Hct 37.1 L MCV 83.6 L MCH 26 L MCHC 31.5 L RDW 21.2 H Plt Count 47 L Neut % (Auto) 81.7 H Lymph % (Auto) 8.1 L [place] % (Auto) 9.3 Eos % (Auto) 0.0 Baso % (Auto) 0.2 Neut # (Auto) 8.4 H Lymph # (Auto) 0.8 L [place] # (Auto) 1.0 H Eos # (Auto) 0.0 Baso # (Auto) 0.0 Total Counted 100 Immature Gran % 0.7 Nucleated RBC % 1.8 Immature Gran # 0.07 Segmented Neutrophils 86 H Band Neutrophils 1 Lymphocytes 5 L Monocytes 8 Nucleated RBCs 4 Nucleated RBCs # 0.19 Platelet Estimate Decreased Hypochromasia 1+ Microcytosis 1+ Ovalocytes Slight [place] Cells Slight ABG pH ABG pCO2 ABG pO2 ABG HCO3 ABG Total CO2 ABG O2 Saturation ABG Base Excess Sodium 130 L Potassium 6.3 H* Chloride 90 L Carbon Dioxide 21 Anion Gap 25.3 H BUN 79 H Creatinine 13.60 H GFR Calculation 6 BUN/Creatinine Ratio 5.00 L Glucose 215 H POC Glucose 162 H Calculated Osmolality 289.8 Calcium < 5.0 L* Magnesium 2.2 - Diagnostic Findings Procedure: Chest x-ray: report reviewed by me - EKG EKG results: interpreted by me EKG shows: sinus rhythm
--- NOTE | 2017-02-17 09:19 | Pulmonology Progress Note ---
Pulmonary - PN: Subj Interval history: This is a 61-year-old black male whom I saw in pulmonary consultation on 2016. I started managing his ventilator on 02/13/2017. My impressions were 1. Acute cardiac arrest with myocardial injury with associated shock and metabolic acidosis and probable central nervous system injury. 2. Underlying heart disease with ejection fraction 20% 3. Acute on chronic renal failure 4. Multiple myeloma 5. Severe hypoglycemia. No history of diabetes mellitus but there is a family history of diabetes 6. Thrombocytopenia 7. See past history 8. See Dr. Seo's history, Dr. Jalen Hu oncology hematology consultation and Dr. Silviano Mondragon's nephrology, we have all discussed the case and we have coordinated our care 02/15/2017. This patient's had an acute OR. His ejection fraction is 20%. He has had a significant metabolic acidosis. He is been hypotensive but this is improving slightly. He appears to have an anoxic injury but he is opening his eyes now CT of the brain shows changes compatible with his known multiple myeloma. Doppler venogram showed no evidence of deep venous thrombophlebitis. Patient's chest x-ray shows mild pulmonary edema. On mechanical ventilation FiO2 50% patient has a pH of 7.46, PCO2 21.2, PO2 of 177, bicarb of 18.9. I am intentionally hyperventilating this patient to help with his metabolic acidosis and hopefully with his cerebral edema. He has acute on chronic renal failure. His creatinine is 9.10 with a BUN of 59 his potassium has dropped from 7.1-6.6. Natruretic peptide is dropped from 879 2 398. Troponins are elevated at 7.600. Total CPK is 10,982. The patient also has severe hypoglycemia. He is not a diabetic. This is been corrected and glucose of 128 this morning. He also had platelets as low as 35,000 and these have improved to 53,000. H&H is stable at 12.3/39.5 and white count is 12,186 segs 8.5 lymphs. This patient is on ventilator weaning and physical therapy protocols. He has improved a little bit but he is still in critical condition. Microbiology. No positive culture 02/17/2017. Dr. Delcid and I have discussed the case and she is brought me up on the family's wishes. They understand that his prognosis is terrible but they want 1 more resuscitation and then if he has to rest after that they do not want anymore resuscitations. Patient has not woken up. He is requiring 3 pressor agents. His chest x-ray shows mild pulmonary edema. Oxygenation seems adequate. CBC is stable. Potassium 6.3. Sodium is 130. Patient is on a weaning protocol and physical therapy protocol. Creatinine is now 13.6 with a BUN of 17. Patient's also developed seizures which are being treated with Keppra and Ativan Physical exam. Vital signs. See below. Neurologic. Totally unarousable Face. Symmetrical. No swelling of the lips or tongue. Neck. No meningismus Chest. Slight loose large airway congestion Heart. Far lateral PMI Abdomen. Nondistended. Only a rare bowel sounds heard Lower extremities. Overlying skin changes of chronic venous stasis. The remainder the physical exam is negative. Plan. 02/14/2017 1. Blood culture 2. Sputum for Gram stain culture and sensitivity 3. Legionella titer 4. Cold agglutinins 5. Daily chest x-rays and ABGs 6. Mechanical ventilation weaning protocol 7. Physical therapy protocol while on mechanical ventilation. 8. Doppler venograms of the lower extremities. 9. Proton pump inhibitor protocol 10. Deep venous thrombophlebitis prevention protocol. 11. Decadron 8 mg IV push every 8 hours. I will use this to help with prevention of large as well as possibly central nervous system effect. 12. Medicines been reviewed and multiple medicines have been held. See orders 13. See orders. 02/15/2017 1. Continue alveolar hyperventilation in the face of metabolic acidosis and central nervous system injury 2. Daily chest x-ray, ABGs, lab 3. Continue Decadron 4. Continue antibiotics and check cultures. 5. Mechanical ventilator weaning protocol 6. Mechanical ventilator physical therapy protocol 7. Proton pump inhibitor protocol twice daily 8. Deep venous thrombophlebitis prevention protocol. 02/18/2016 1. See my note for today above 2. Seizures. Exam (Progress Note) - Constitutional Vitals: Period Temp Pulse Resp BP Sys/Connell Pulse Ox Last 24 Hr 97.1 F-99.3 F 73-80 9-37 54-82/33-49 81-100 Results - Labs CBC & BMP: 02/17/17 06:05 02/17/17 06:05
--- NOTE | 2017-02-17 09:49 | Hospitalist Progress Note ---
Assessment and Plan (1) Respiratory failure Status: Acute Assessment and plan: Pt. currently intubated. Pulmonary following for vent management. Daily CXRs ordered. WBC 12.1. Pt to be continued on IV antibiotics. Continue to monitor. 02/17 Continue to monitor. Current Visit: Yes (2) Acute renal failure Status: Acute Assessment and plan: Nephrology following pt's care. Pt's bun/creatinine worsened today to 59/9. Due to patient's poor prognosis, there will not be any plans for hemodialysis at this time. Pt. has briggs catherer in place. Strict I&Os ordered. Continue daily labs (BMP/CBC) 02/16 Nephrology following. Bun/creatinine 73/12.4 today. Prognosis is poor. 02/17 Nephrology following. bun/creatinine continue to worsen. Pt. is still producing urine. Overall prognosis remains poor. Current Visit: Yes (3) Cardiopulmonary arrest with successful resuscitation Status: Acute Assessment and plan: s/p cardiopulmonary arrest. Current Visit: Yes (4) Congestive heart failure Status: Acute Assessment and plan: Pt. not known to have any prior cardiac history. Pt is s/p acute LA. EF noted at 15%. Cardiology following. Due to hypotension, pt is not able to tolerate zay /arb/beta danette therapy at this time. Dobutamine currently infusing. 02/16 Cardiology following. Dobutamine has been discontinued. 02/17 Cardiology following. Continue current plan of care. Current Visit: Yes Qualifiers: Congestive heart failure type: combined Congestive heart failure chronicity : acute Qualified Code(s): I50.41 - Acute combined systolic (congestive) and diastolic (congestive) heart failure (5) Elevated troponin Status: Acute Assessment and plan: Pt. is s/p cardiac arrest. Cardiology following. Current Visit: Yes (6) Hyperkalemia Status: Acute Assessment and plan: Pt's K is 6.6. This is a decrease from 7.1. Defer to nephrology for management. 02/16 K is 6.1 Current Visit: Yes (7) Myeloma Status: Chronic Assessment and plan: Pt. has history of multiple myeloma. Currently in remission. Oncology is seeing patient. Pt. received 1 unit of platelets on 02/14. Current Visit: Yes (8) Hypoglycemia Status: Resolved Current Visit: Yes Hospitalist: Subjective Interval history: Mr. Muñoz was seen and examined. Lab and chart reviewed. Pt remains in critical condition. Intubated and unresponsive. Pt's condition has been explained to family. Per their request on yeseterday, they decided they want patient to be coded only once; if he survives they would like the status to be changed to DNR. Multiple services continue to follow. Pt is maxed out on pressors, sys bp is in 60s. We will continue to follow. Exam - Constitutional Vitals: Period Temp Pulse Resp BP Sys/Connell Pulse Ox Last 24 Hr 97.1 F-99.3 F 73-80 9-38 54-82/33-49 81-100 General appearance: no acute distress, over weight - Head Head exam: Present: normal inspection, normocephalic - Eye Eye exam: Present: other (pt has spontaneous roving eye movements). Absent: periorbital swelling, laceration to eyelids - Respiratory Respiratory exam: Present: other (coarse) - Cardiovascular Cardiovascular exam: Present: regular rate and rhythm - GI/Abdominal GI/Abdominal exam: Present: normal bowel sounds, soft - Extremities Exam Extremities exam: Present: other - Neurological Exam Neurological exam: Present: altered. Absent: CN II-XII intact - Psychiatric Psychiatric exam: Present: other (pt intubated) - Skin Skin exam: Present: normal color, dry, other (skin is very cold to touch ) Results - Labs CBC & BMP: 02/17/17 06:05 02/17/17 06:05 Lab Results: I have reviewed the past 24 hour labs
[2017-02-17] MEDS: LEVOTHYROXINE 100 MCG TABLET PO SCH (10:22)
[2017-02-17] MEDS: MAGNESIUM OXIDE 400 MG TABLET PO SCH (10:22)
[2017-02-17] MEDS: PANTOPRAZOLE 40 MG VIAL IV SCH (10:22)
[2017-02-17] MEDS: SODIUM ACETATE 150 MEQ in DEXTROSE 5% 925 ML IV SCH (10:42)
[2017-02-17] MEDS ORDERED: CALCIUM GLUCONATE 2,000 MG in SODIUM CHLORIDE 0.9% 100 ML IV ONE (11:00)
[2017-02-17] MEDS ORDERED: ATROPINE 1 MG/10 ML SYRINGE ONE (12:44)
[2017-02-17] MEDS ORDERED: SODIUM BICARBONATE 50 MEQ/50 ML SYRINGE IV ONE (12:44)
[2017-02-17] MEDS ORDERED: EPINEPHrine 1 MG/ML VIAL ONE (12:44)
[2017-02-17 13:07] VITALS: BP 69/15
== END 2017-02-17 13:12 | disposition expired | DRG 291 ==
LOC: EDBD → N.ED 05:19 → SUATTDRO 06:45 → N.EDINP 06:45 → N.4E 07:26 → N.CC 13:02
PROVIDERS: ADMIT Hospitalist; ATTEND Internal Medicine